=== PATIENT | male | born 1950 | race Caucasian/White ===

== ENCOUNTER 2016-10-29 20:18 | Observation (INO) | payer OTHER ==
[~2016-10-29] VITALS: Ht 177.8 cm; Wt 103.4 kg
[~2016-10-29 20:18] MED LIST: ALLOPURINOL100 MG PO; AMLODIPINE10 MG PO; ARANESP0.06 MG/0. SC; AUGMENTIN 500M500 MG PO; CEFTIN 250 #201 PAC PO; COREG 25 MG TAB25 MG PO; CRESTOR 10MG10 MG PO; CRESTOR5 MG PO; ECOTRIN81 MG PO; FISH OIL CONCEN1 SGL PO; FLU VACCINE 0.0.5 ML IM; FUROSEMIDE20 MG PO; GLIMEPIRIDE4 MG PO; GLIPIZIDE10 MG PO; ILEVRO 1.7 ML1.7 ML OP; LASIX20 MG PO; LASIX40 MG PO; LASIX80 MG PO; LOSARTAN POTAS100 MG PO; LOTEMAX 10 ML10 ML OPH; LOVAZA1 GM PO; PENTOXIFYLLINE400 MG PO; PERCOCET 325 MG1 TA2 PO; PRESERVISION1 SGL PO; RENVELA800 MG PO; SENSIPAR30 MG PO; SENSIPAR90 MG PO; SODIUM BICARBO650 MG PO; STARLIX60 MG PO; TRAVATAN Z50 GTT/1 B OPH; VIGAMOX 3 ML3 ML OP; VITAMIN D50000 IU PO
--- NOTE | 2016-10-29 20:35 | NUR ---
RECEIVED 65 YO MALE WITH HX OF PERITONEAL DIALYSIS C/O MID STERNAL AREA CHEST PAIN WITH COUGHING, DEEP BREATHING, STARTED EARLIER, GETTING MORE INTENSE. NO C/O DIAPHORESIS, NAUSEA OR WORSENING SOB. PT HAS CHRONIC SOB ON EXERTION.
--- NOTE | 2016-10-29 20:38 | NUR ---
RECIEVED TO ROOM 7 VIA WHEELCHAIR
--- NOTE | 2016-10-29 20:40 | NUR ---
PLACED ON MONITOR. PT ASKING TO SIT ON EDGE OF BED DUE TO BUTTOCKS DISCOMFORT. PT THINKS HE MAY HAVE BOIL DEVELOPING
[2016-10-29] MEDS ORDERED: CALCITRIOL0.5 MC1 PO ×2 (20:47→20:48)
[2016-10-29] MEDS ORDERED: CRESTOR5 M1 PO (20:49)
[2016-10-29] MEDS ORDERED: CARVEDILOL12.5 M1 PO (20:49)
[2016-10-29] MEDS ORDERED: RENVELA800 M1 PO (20:49)
[2016-10-29] MEDS ORDERED: STARLIX60 M1 PO (20:50)
[2016-10-29] MEDS ORDERED: FUROSEMIDE80 M1 PO (20:51)
[2016-10-29] MEDS ORDERED: ALLOPURINOL100 M1 PO (20:51)
[2016-10-29] MEDS ORDERED: METOLAZONE5 M1 PO (20:51)
[2016-10-29] MEDS ORDERED: ASPIRIN EC81 M1 PO (20:52)
[2016-10-29] MEDS ORDERED: SENSIPAR90 M1 PO (20:52)
[2016-10-29] MEDS ORDERED: PRESERVISION A1 EAC1 PO (20:53)
[2016-10-29] MEDS ORDERED: STOOL SOFTENER100 M2 PO (20:54)
[2016-10-29] MEDS ORDERED: OMEGA-31000 M1 PO (20:54)
[2016-10-29] MEDS ORDERED: MIRALAX17 G1 PO (20:55)
[2016-10-29] MEDS ORDERED: VITAMIN D250000 UNIT PO (20:56)
[2016-10-29] MEDS ORDERED: LOSARTAN POTASS50 M1 (20:58)
--- NOTE | 2016-10-29 21:10 | NUR ---
SEEN BY DR BENTLEY.
--- NOTE | 2016-10-29 21:20 | ED CARDIAC/CP/PALPITATIONS ---
History of Present Illness General Chief Complaint: Chest Pain Stated Complaint: CHEST PAIN ALL DAY PER PT Source: patient, old records, Exam Limitations: no limitations Vital Signs & Intake/Output Vital Signs & Intake/Output Vital Signs Date Time Temp Pulse Resp B/P Pulse O2 O2 Flow FiO2 Ox Delivery Rate 10/30 0016 102/58 10/29 2348 78/52 10/29 2335 80 88/44 10/29 2317 73 18 80/40 10/29 2237 98.0 85 18 96/77 95 Room Air 10/29 2139 Room Air 10/297 96.8 99 18 127/58 96 Room Air ED Intake and Output 10/30 0000 10/29 1200 Intake Total Output Total Balance Patient 228 lb Weight Allergies Coded Allergies: tetrahydrozoline (BELIEVES HE HAD A COUGH, UNSURE 10/10/15) Reconcile Medications Allopurinol 100 MG TABLET 1 TAB PO DAILY GOUT (Reported) Aspirin (Ecotrin*) 81 MG TABLET.DR 1 TAB PO DAILY HEART/BLOOD (Reported) Calcitriol 0.5 MCG CAPSULE 1 CAP PO EOD RENAL (Reported) Calcitriol 0.5 MCG CAPSULE 2 CAP PO EOD RENAL (Reported) Carvedilol 12.5 MG TABLET 1 TAB PO BID HEART (Reported) Cinacalcet HCl (Sensipar) 90 MG TABLET 1 TAB PO AD RENAL (Reported) Docusate Sodium (Stool Softener) 100 MG TABLET 1 TAB PO BID STOOL SOFTENER ( Reported) Ergocalciferol (Vitamin D2) (Vitamin D2) 50,000 UNIT CAPSULE 1 CAP PO Q30D SUPPLEMENT (Reported) Furosemide 80 MG TABLET 1 TAB PO BID DIURETIC (Reported) Losartan Potassium (Unknown Strength) TABLET (Unknown Dose) UNKNOWN (Reported ) Metolazone 5 MG TABLET 1 TAB PO EOD DIURETIC (Reported) Nateglinide (Starlix) 60 MG TABLET 1 TAB PO BID DM (Reported) [place]-3 Fatty Acids ([place]-3) 1,000 MG CAPSULE 1 CAP PO EOD SUPPLEMENT ( Reported) Polyethylene Glycol 3350 (Miralax) 17 GRAM POWD.PACK 1 PAC PO PRN GI ( Reported) dissolve in water Rosuvastatin Calcium (Crestor) 5 MG TABLET 1 TAB PO DAILY CHOLESTEROL ( Reported) Sevelamer Carbonate (Renvela) 800 MG TABLET 3 TAB PO TID RENAL (Reported) Vit C/E/Zn/Coppr/Lutein/Zeaxan (Preservision Areds 2 Softgel) 250-200-40 CAPSULE 1 CAP PO BID SUPPLEMENT (Reported) Triage Note: RECEIVED 65 YO MALE WITH HX OF PERITONEAL DIALYSIS C/O MID STERNAL AREA CHEST PAIN WITH COUGHING, DEEP BREATHING, STARTED EARLIER, GETTING MORE INTENSE. NO C/O DIAPHORESIS, NAUSEA OR WORSENING SOB. PT HAS CHRONIC SOB ON EXERTION. Triage Nurses Notes Reviewed? yes HPI: Patient presents for evaluation of chest pain that began earlier today. It began sometime in the late morning. Patient is unable to say if it began gradually or suddenly. It did get worse however tonight. It is described as a mild constant substernal chest pain that becomes severe with coughing and deep inspiration. He was seen at the [facility] today, a routine renal transplant list visit and was told that based on a recent echocardiogram and stress test that he would be taken off the list. He denies any prior episodes of chest pain. He denies dyspnea palpitations sweating jaw pain arm pain or leg swelling. He hasn't tried any medications for the pain to this point. He denies past medical history of TN or angina. He does have a history of congestive heart failure and cardiomyopathy. Past History Travel History Traveled to [place] past 21 day No Medical History Any Pertinent Medical History? see below for history Neurological: NONE EENT: NONE Cardiovascular: NONE (EF 35-40%), CAD, CHF, hypertension, hyperlipidemia Respiratory: NONE Gastrointestinal: NONE Hepatic: NONE Renal: chronic kidney disease, stage IV CKD, awaiting transplant diabetic nephropathy Musculoskeletal: gout Psychiatric: NONE Endocrine: diabetes Blood Disorders: NONE Cancer(s): prostate cancer CLERK STENOGRAPHER/Reproductive: NONE Other Medical Hx: Apparently has been on list for kidney transplant for 6 years History of MRSA: No History of VRE: No History of CDIFF: No Pneumonia Vaccine: 05/10/14 Influenza Vaccine: 06/17/15 Surgical History Surgical History: appendectomy, prostatectomy, BACK SURGERY - 3 YEARS AGO T + A tonsillectomy as a child Psychosocial History Who do you live with Family Services at Home None What is your primary language Yoruba Tobacco Use: Never used Family History Family History, If Any: MOTHER FH: CAD (coronary artery disease) FH: cancer FH: Parkinson's disease FHx: diabetes mellitus FATHER FH: hyperlipidemia Hx Contributory? No Review of Systems Review of Systems Constitutional: Reports: no symptoms. EENTM: Reports: no symptoms. Respiratory: Reports: no symptoms. Cardiovascular: Reports: see HPI. GI: Reports: no symptoms. Genitourinary: Reports: no symptoms. Musculoskeletal: Reports: no symptoms. Skin: Reports: no symptoms. Neurological/Psychological: Reports: no symptoms. Hematologic/Endocrine: Reports: no symptoms. Immunologic/Allergic: Reports: no symptoms. All Other Systems: Reviewed and Negative Physical Exam Physical Exam Cardiovascular: SEE BELOW Comments: Gen.: Well-nourished, well-developed, no acute respiratory distress. Head: Normocephalic, atraumatic. Eyes: Normal inspection bilaterally Ears: Normal inspection bilaterally Nose: Normal inspection Throat/mouth : Moist mucosa Neck: Supple, full range of motion, no goiter Heart: Regular rate and rhythm, soft systolic murmur Lungs: Clear to auscultation bilaterally with normal air entry Chest: Nontender Back: Normal range of motion, mild kyphosis, area of ischemia at the superior Aspect of the buttock crease Abdomen: Soft, nontender, nondistended, normal bowel sounds Extremities: Normal range of motion grossly, equal radial pulses, no cyanosis clubbing or edema, calves nontender Neurologic: Cranial nerves grossly intact, speech is clear Skin: warm and dry Psychiatric: Calm, cooperative, no apparent delusions or hallucinations Core Measures ACS in differential dx? Yes Severe Sepsis Present: No Septic Shock Present: No Progress Differential Diagnosis: AMI, CHF/pulm edema, unstable angina Plan of Care: Orders Procedure Date/time Status Place in observation 10/30 40 Active Telemetry/Lead Infrastructure Architect 10/29 2118 Active TROPONIN LEVEL 10/29 2118 Complete MAGNESIUM 10/29 2118 Complete D-DIMER 10/29 2118 Complete CBC WITHOUT DIFFERENTIAL 10/29 2118 Complete B-TYPE NATRIURETIC PEP (BNP) 10/29 2118 Complete BASIC METABOLIC PANEL 10/29 2118 Complete EKG 10/29 2022 Active Laboratory Tests 10/29/162129: Anion Gap 16, Estimated GFR 4 L, BUN/Creatinine Ratio 6.5 L, Glucose 97, Calcium 9.8, Magnesium 2.3, Troponin I < 0.01, Jxz-P-Ojmccflvcoa Pept 4580 H, D -Dimer < 200, CBC w Diff NO MAN DIFF REQ, RBC 5.13, MCV 69.5 L, MCH 21.4 L, RDW 19.9 H, MPV 8.1, Gran % 74.6, Lymphocytes % 9.6 L, Monocytes % 12.3 H, Eosinophils % 3.0, Basophils % 0.5, Absolute Granulocytes 8.7 H, Absolute Lymphocytes 1.1 L, Absolute Monocytes 1.4 H, Absolute Eosinophils 0.3, Absolute Basophils 0.1, PUBS MCHC 30.8 L Diagnostic Imaging: Discussed w/RAD: Radiology Read. CXR Impression: PATIENT: DENIA ROSARIO PRESENT AGE: 65 PATIENT ACCOUNT NO: [id number] : 51 LOCATION: [facility] ORDERING PHYSICIAN: CARLOS BENTLEY MD SERVICE DATE: 10/29/16 EXAM TYPE: RAD - XRY-PORTABLE CHEST XRAY EXAMINATION: XR PORTABLE CHEST CLINICAL INFORMATION: CHF effusion COMPARISON: CT chest 10/22/2016 and chest x-ray 10/20/2015 TECHNIQUE: Portable AP view of the chest was obtained. FINDINGS: Probable persistent but decreased left basilar pleural-based opacity is seen on prior imaging examinations. The lungs are otherwise clear. The cardiac silhouette and pulmonary vascularity are normal there is calcification of the dorsal aorta. IMPRESSION: Persistent albeit decreased pleural-based opacity at the left base DICTATED BY: FLORENCIO HERNÁNDEZ MD DATE/TIME DICTATED:10/29/162204 OUTSIDE MACHINIST SUPERVISOR:CAMERON DATE/TIME TRANSCRIBED:10/29/162204 CONFIDENTIAL, DO NOT COPY WITHOUT APPROPRIATE AUTHORIZATION. <Electronically signed in Other Vendor System> SIGNED BY: FLORENCIO HERNÁNDEZ MD 10/29/162212 Initial ED EKG: SINUS TACHYCARDIA WITH A VENTRICULAR RATE OF 101. iNTRAVENTRICULAR CONDUCTION DELAY WITH LEFTWARD AXIS. Prior EKG: unchanged Comments: 10/29/2016 10:44:34 PM I have updated Denia on his test results. He appears comfortable and has no complaint at this time. I've discussed this case with Dr. Marcano who feels that he is stable for outpatient follow-up. He feels that given the duration of the patient's pain today a repeat EKG and troponin would be of no benefit. 10/29/2016 10:53:30 PM when updated Denia on my discussion with Dr. Marcano, he commented that he was still having the substernal chest pain although it is better. He is agreeable to a sl nitroglycerin challenge followed by a GI cocktail. 10/29/2016 11:57:10 PM patient's nurse states that his blood pressure is still running low. Although he does perform peritoneal dialysis, I have ordered a 500 mL fluid bolus to stabilize his blood pressure. I will monitor for any signs of fluid overload. 10/30/2016 12:12:08 AM patient received only transient relief of his chest pain with a GI cocktail (we held on the subungual nitroglycerin given the patient's low blood pressure). His they'll achy substernal chest pain seems to have now returned. He states it is better than earlier today. Will contact Dr. Marcano. 10/30/2016 12:42:18 AM patient's blood pressure has now normalized with a fluid bolus. His pain persists. I've discussed this case with Dr. Gillespie covering for Dr. Marcano. Patient to be placed in observation. Departure Departure Disposition: STILL A PATIENT Condition: Stable Clinical Impression Primary Impression: Chest pain Qualifiers: Chest pain type: unspecified Qualified Code: R07.9 - Chest pain, unspecified Secondary Impressions: Renal failure Referrals: NOÉ GILLESPIE MD (PCP/Family) Departure Forms: Customer Survey General Discharge Information Observation Note Spoke With: ROMMEL GILLESPIE MD, V. Physician Advisor Notified: GAGAN ECKERT,CORNELIO Hendrickson Place Patient In: Non-ED OBS Care Area Rationale for Observation: My rational for observation is as follows patient has ongoing chest pain of unclear etiology. He also experience a transient hypotension in the emergency Department requiring a fluid bolus. This raises a concern for coronary artery disease and a cardiac chest pain. Feel the patient requires serial troponins and serial EKGs and consideration of cardiac catheterization. Should his blood pressure drop again he would be at risk of worsening chest pain, syncope and dyspnea. I feel he is therefore poor candidate for outpatient treatment at this time. Critical Care Note Critical Care Note Critical Care Time: 30-74 min
--- NOTE | 2016-10-29 21:34 | NUR ---
IV PLACED LABS DRAWN.
--- NOTE | 2016-10-29 21:40 | NUR ---
PT GIVEN TYLENOL IV FOR PAIN. CONTINUES TO HAVE BUTTOCKS DISCOMFORT. SITTING ON EDGE OF BED
[2016-10-29 21:45] LABS: ABSOLUTE BASOPHIL COUNT 0.1 /CUMM (0.0-0.2); ABSOLUTE EOSINOPHIL COUNT 0.3 /CUMM (0.0-0.7); ABSOLUTE GRANULOCYTE CT 8.7 /CUMM (1.4-6.5); ABSOLUTE LYMPH COUNT 1.1 /CUMM (1.2-3.4); ABSOLUTE MONOCYTE COUNT 1.4 /CUMM (0.10-0.60); BASOPHIL % 0.5 % (0.0-2.0); GRANULOCYTE % 74.6 % (42.2-75.2); HEMATOCRIT 35.7 % (42-52); MEAN CORPUSCULAR HGB 21.4 PG (27.0-31.0); MEAN CORPUSCULAR HGB CONC 30.8 G/DL (33.0-37.0); MEAN CORPUSCULAR VOLUME 69.5 FL (80.0-94.0); MEAN PLATELET VOLUME 8.1 FL (7.4-10.4); PLATELET COUNT 176 /CUMM (130-400); RBC DISTRIBUTION WIDTH 19.9 % (11.5-14.5); RED BLOOD CELL CT 5.13 /CUMM (4.70-6.10); WHITE BLOOD CELL COUNT 11.7 /CUMM (4.8-10.8)
--- NOTE | 2016-10-29 22:13 | RADIOLOGY REPORT ---
EXAMINATION: XR PORTABLE CHEST CLINICAL INFORMATION: CHF effusion COMPARISON: CT chest 10/22/2016 and chest x-ray 10/20/2015 TECHNIQUE: Portable AP view of the chest was obtained. FINDINGS: Probable persistent but decreased left basilar pleural-based opacity is seen on prior imaging examinations. The lungs are otherwise clear. The cardiac silhouette and pulmonary vascularity are normal there is calcification of the dorsal aorta. IMPRESSION: Persistent albeit decreased pleural-based opacity at the left base
--- NOTE | 2016-10-29 22:35 | NUR ---
PT CONTINUES TO HAVE SOME CHEST DISCOMFORT. PT UNCOMFORTABLE IN STRETCHER. RECLINER CHAIR PUT IN ROOM AND PT NOW IN RECLINER CHAIR/
--- NOTE | 2016-10-29 22:45 | NUR ---
DR BENTLEY IN TO SEE PT AND HE IS AWARE OF CONTINUED CHEST DISCOMFORT.
--- NOTE | 2016-10-29 22:50 | NUR ---
DR BENTLEY NOTIFIED THAT PT HAS BLOOD PRESSURE OF 96/77. ORDER ON CHART TO GIVE NTG. MISAEL BENTLEY STATES TO RECHECK B/P AND GIVEN NTG IF BLOOD PRESSURE OVER 100 SYSTOLIC.
--- NOTE | 2016-10-29 23:15 | NUR ---
BLOOD PRESSURE RECHECKED WHILE IN CHAIR AND WAS LOW. MANUALL PRESSURES CHECKED IN BOTH ARMS AND PRESSURE 77/40. DR BENTLEY NOTIFIED. NTG NOT GIVEN. PT GIVEN GI COCKTAIL FOR CHEST DISCOMFORT. PT DENIES DIZZINESS. STATES HIS NORMAL PRESSURE IS IN THE 90S TO LOW 100S. ATTEMPTED TO GET PT BACK TO BED BUT PT WILL NOT STAY IN BED. INSISTS ON GETTING INTO RECLINER CHAIR.
--- NOTE | 2016-10-29 23:15 | NUR ---
ASSUMED CARE OF PT PER CASIMIRO HERNÁNDEZ. WILL CONTINUE TO MONITOR
--- NOTE | 2016-10-29 23:17 | NUR ---
BLOOD PRESSURE CHECKED AND IS 80/40, DR BENTLEY AWARE. NO FURTHER ORDERS AT PRESENT. PT REMAINS ALERT AND ORIENTED. SKIN WARM AND DRY.
--- NOTE | 2016-10-29 23:40 | NUR ---
REPORT GIVEN TO MOE KIRKPATRICK
--- NOTE | 2016-10-29 23:57 | NUR ---
DR BENTLEY INFORMED OF PTS BP OF 78/[address] BENTLEY ORDERED 500ML NS BOLUS INFUSING
--- NOTE | 2016-10-30 00:04 | NUR ---
DR BENTLEY AT BEDSIDE
--- NOTE | 2016-10-30 00:16 | NUR ---
PTS BP RECHECKED 102/58, DR BENTLEY INFORMED
--- NOTE | 2016-10-30 02:01 | NUR ---
VSS, PT SLEEPIGN IN CHAIR SITTING UP.
--- NOTE | 2016-10-30 02:53 | History & Physical ---
REINALDO CHRISTINA 10/30/16 0249: General Information and HPI MD Statement: I have seen and personally examined DENIA ROSARIO and documented this H&P. The patient is a 65 year old M who presented with a patient stated chief complaint of [Chest pain]. Source of Information: patient, old records Exam Limitations: no limitations History of Present Illness: This is a 65-year-old male with an extensive past medical history. The patient has a history of hypertension, dyslipidemia, restrictive lung disease, COPD not on home oxygen, MARY on CPAP, chronic kidney disease, diabetes, prostate cancer status post prostatectomy, and gout. Patient has ESRD on peritoneal dialysis. Patient presenting with chest pain that began today around a little morning hours. Pain is located in the center part just above the epigastric area radiating to the liver area it is 6 out of 10. The patient reports that it's dull aching pain that is not radiating to any place. She does not know any relieving factors but reports that the pain is exacerbated with swallowing or deep breathing. Patient denies any history of acid reflux or pain been associated with sense of fullness after eating food. He denies any fevers or chills, he has no cough or shortness of breath. He has no excessive sweating lightheadedness or dizziness. Patient reports that he has been sleeping on a recliner for a long time because of a bad back which is making he difficult for him to lie flat. He denies any swelling of lower limbs OR waking up at night gasping for air. He has been taking his medication as instructed and he reports to continue to use the same technique in doing his peritoneal dialysis. Allergies/Medications Allergies: Coded Allergies: tetrahydrozoline (BELIEVES HE HAD A COUGH, UNSURE 10/10/15) Home Med list Allopurinol 100 MG TABLET 1 TAB PO DAILY GOUT (Reported) Aspirin (Ecotrin*) 81 MG TABLET. 1 TAB PO DAILY HEART/BLOOD (Reported) Calcitriol 0.5 MCG CAPSULE 1 CAP PO EOD RENAL (Reported) Calcitriol 0.5 MCG CAPSULE 2 CAP PO EOD RENAL (Reported) Carvedilol 12.5 MG TABLET 1 TAB PO BID HEART (Reported) Cinacalcet HCl (Sensipar) 90 MG TABLET 1 TAB PO AD RENAL (Reported) Docusate Sodium (Stool Softener) 100 MG TABLET 1 TAB PO BID STOOL SOFTENER ( Reported) Ergocalciferol (Vitamin D2) (Vitamin D2) 50,000 UNIT CAPSULE 1 CAP PO Q30D SUPPLEMENT (Reported) Furosemide 80 MG TABLET 1 TAB PO BID DIURETIC (Reported) Metolazone 5 MG TABLET 1 TAB PO EOD DIURETIC (Reported) Nateglinide (Starlix) 60 MG TABLET 1 TAB PO BID DM (Reported) [place]-3 Fatty Acids ([place]-3) 1,000 MG CAPSULE 1 CAP PO EOD SUPPLEMENT ( Reported) Polyethylene Glycol 3350 (Miralax) 17 GRAM POWD.PACK 1 PAC PO PRN GI ( Reported) dissolve in water Rosuvastatin Calcium (Crestor) 5 MG TABLET 1 TAB PO DAILY CHOLESTEROL ( Reported) Sevelamer Carbonate (Renvela) 800 MG TABLET 3 TAB PO TID RENAL (Reported) Vit C/E/Zn/Coppr/Lutein/Zeaxan (Preservision Areds 2 Softgel) 250-200-40 CAPSULE 1 CAP PO BID SUPPLEMENT (Reported) Past History Travel History Traveled to [place] past 21 day No Medical History Neurological: NONE EENT: NONE Cardiovascular: NONE (EF 35-40%), CAD, CHF, hypertension, hyperlipidemia Respiratory: NONE Gastrointestinal: NONE Hepatic: NONE Renal: chronic kidney disease, stage IV CKD, awaiting transplant diabetic nephropathy Musculoskeletal: gout Psychiatric: NONE Endocrine: diabetes Blood Disorders: NONE Cancer(s): prostate cancer DIRECTOR REPORT/Reproductive: NONE Other Medical Hx: Apparently has been on list for kidney transplant for 6 years History of MRSA: No History of VRE: No History of CDIFF: No Pneumonia Vaccine: 05/10/14 Influenza Vaccine: 06/17/15 Surgical History Surgical History: appendectomy, prostatectomy, BACK SURGERY - 3 YEARS AGO T + A tonsillectomy as a child Past Family/Social History Family History Relations & Conditions if any MOTHER FH: CAD (coronary artery disease) FH: cancer FH: Parkinson's disease FHx: diabetes mellitus FATHER FH: hyperlipidemia Psychosocial History Services at Home: None Functional Ability ADLs Independent: dressing, eating, toileting, bathing. Ambulation: cane IADLs Independent: shopping, finances, telephone, medication admin. Review of Systems Review of Systems Constitutional: Denies: chills, fever. Cardiovascular: Reports: see HPI, chest pain. Denies: palpitations, syncope. Respiratory: Denies: cough, short of breath. GI: Denies: no symptoms. Genitourinary: Denies: no symptoms. Musculoskeletal: Reports: back pain. Skin: Denies: no symptoms. All Other Systems: Reviewed and Negative Exam & Diagnostic Data Last 24 Hrs of Vital Signs/I&O Vital Signs Date Time Temp Pulse Resp B/P Pulse O2 O2 Flow FiO2 Ox Delivery Rate 10/30 0214 98/50 10/30 0142 91 117/56 10/30 0113 91 102/53 10/30 0048 125/67 10/30 0016 102/58 10/29 2348 78/52 10/29 2335 80 88/44 10/29 2317 73 18 80/40 10/29 2237 98.0 85 18 96/77 95 Room Air 10/29 2139 Room Air 10/29 2047 96.8 99 18 127/58 96 Room Air Intake & Output 10/30 0800 10/30 0000 10/29 1600 Intake Total Output Total Balance Patient 228 lb Weight Physical Exam General Appearance Alert, Oriented X3, Cooperative, No Acute Distress Skin No Rashes HEENT Atraumatic, Mucous Membr. moist/pink Neck Supple Cardiovascular Regular Rate, Normal S1, Normal S2, No Murmurs Lungs Clear to Auscultation, Normal Air Movement Abdomen Normal Bowel Sounds, Soft, No Tenderness Neurological Normal Speech, Normal Tone Extremities No Clubbing, No Cyanosis, No Edema Last 24 Hrs of Labs/Elijah: Laboratory Tests 10/29/160: Anion Gap 16, Estimated GFR 4 L, BUN/Creatinine Ratio 6.5 L, Glucose 97, Calcium 9.8, Magnesium 2.3, Troponin I < 0.01, [id number]-Mvssxzykqhz Pept 4580 H, D -Dimer < 200, CBC w Diff NO MAN DIFF REQ, RBC 5.13, MCV 69.5 L, MCH 21.4 L, RDW 19.9 H, MPV 8.1, Gran % 74.6, Lymphocytes % 9.6 L, Monocytes % 12.3 H, Eosinophils % 3.0, Basophils % 0.5, Absolute Granulocytes 8.7 H, Absolute Lymphocytes 1.1 L, Absolute Monocytes 1.4 H, Absolute Eosinophils 0.3, Absolute Basophils 0.1, PUBS MCHC 30.8 L Diagnostic Data CXR Results Operations Expert Ruben decreased pleural based opacity at the left base Assessment/Plan Assessment: 65 years old man with extensive cardiac history hypertension hyperlipidemia COPD , diabetes mellitus, obstructive sleep apnea on CPAP who is presenting with one- day history of chest pain on the central Nonradiating associated with deep breathing and swallowing. There is no postural relation to the pain. Problem list Chest pain rule out ACS End-stage renal disease on peritoneal dialysis Hypertension Hyperlipidemia COPD Obstructive sleep apnea Placed the patient on observation telemetry Continue with car examiner Serial troponin and EKG 3 samples Restart peritoneal dialysis per home schedule Continue blood pressure medication carvedilol 12.5 twice a day and to diuress with furosemide 80 twice a day and metolazone 5 every other day Continue rosuvastatin 5 mg daily For gout continue allopurinol 100 mg daily Patient is full code and will be put on pain pathway and heparin for DVT prophylaxis As Ranked By This Provider Problem List: 1. Chest pain Qualifiers Chest pain type: unspecified Qualified Code: R07.9 - Chest pain, unspecified 2. Hyperlipidemia 3. Hypertension 4. Full code status 5. End-stage renal disease on peritoneal dialysis Core Measures/Miscellaneous Acute Coronary Syndrome ACS Diagnosis: No Cerebrovascular Accident CVA/TIA Diagnosis: No Congestive Heart Failure CHF Diagnosis: No Venous Thromboembolism VTE Risk Factors: Acute medical illness, Age > 40 [facility] prophylaxis d/t: No contraindications No VTE Pharm Prophylaxis d/t: No contraindications VTE Diagnosis: No VTE Type: NONE VTE Confirmed by (Test): NONE Severe Sepsis Severe Sepsis Present: No Septic Shock Septic Shock Present: No Miscellaneous Documentation Attending Case Discussed With: Jace MARTEL MD Primary Care Physician: NOÉ PALMA MD Patient sees these Specialists Emily Martel MD Level of Patient Care: Telemetry Resident Review Statement Resident Statement: examined this patient Other Findings: Refer to my findings above ROMMEL PALMA MD 10/30/16 1014: Attending Review Statement Attending Statement Attending Statement: examined this patient, discuss w/resident/PA/AD CLERK, discussed with family, discussed with nursing Attending Assessment/Plan: The patient is a 65-year-old male with hypertension, end-stage renal disease on peritoneal dialysis and dyslipidemia but no active coronary artery disease. He presented with midsternal chest pain that was worse with breathing and coughing and pushing with his arms. The pain has abated significantly although it is still slightly there. His EKGs have not shown any changes. He has 3 negative troponins. The pain is clearly noncardiac by description. The patient can be discharged to home at this time. He will call if the pain recurs or becomes worse but I told him he could take just analgesics for now.
--- NOTE | 2016-10-30 04:17 | NUR ---
REPEAT TROPONIN DRAWN AND SENT TO LAB
--- NOTE | 2016-10-30 06:40 | NUR ---
PT REFUSED HEPARIN. RESIDENT PAGED AND INFORMED.
--- NOTE | 2016-10-30 07:37 | NUR ---
BREAKFAST GIVEN. PT TO HAVE 0900 LABS
--- NOTE | 2016-10-30 08:42 | NUR ---
REPEAT TROP DRAWN AND SENT.\ PT DENIES CO STATES PAIN IS BETTER PT REPORTS HE WOULD LIKE TO LEAVE. WILL WAIT ON TROP RESULTS AND PAGE HOUSESTAFF.
--- NOTE | 2016-10-30 09:25 | NUR ---
MOD PAGED TO FIND HOUSESTAFF BEEPER COVERING PT BEEPER 172. DR VALLES RETURNED CALL MADE AWARE OF PTS DESIRE TO LEAVE, 3RD NEGATIVE TROP AND CURRENT BP AND WHETHER COREG SHOULD BE GIVEN, PER RESIDENT, AWAITING DR ZIEGLER WHO IS TO CEAR PT. ASKED FOR TIME FRAME NONE GIVEN NO DEFINATIVE ANSWER ON COREG.
--- NOTE | 2016-10-30 09:28 | NUR ---
LUNGS DIMINSHED AT BASELINE NO RESP DISTRESS, NO CO CP NO PEDAL EDEMA PT HAS SPEND ALL ADMISSION IN RECLINER FOR COMFORT.
--- NOTE | 2016-10-30 09:46 | NUR ---
PER FAMILY AND PT PTS BP HAS BEEN LOW HUNDREDS TO 90'S X 2 MONTHS EVEN AT DIALYSIS. PER PT STILL TAKES COREG 12.5 MG DOWN FROM 25 MG 2 MONTHS AGO.
--- NOTE | 2016-10-30 10:10 | NUR ---
DR. PALMA AT BEDSIDE.
--- NOTE | 2016-10-30 10:25 | NUR ---
PER DR PALMA PT IS CLEARED TO LEAVE, AM MEDS GIVEN IV HEPLOCK DISCONTINUED.
[2016-10-30 10:26] VITALS: BP 113/54
--- NOTE | 2016-10-30 10:42 | NUR ---
SPOKE WITH RESIDENT WHO REPORTS IT TAKES A LONG TIME TO DISCHARGE SOMEONE. DR CAZARES AWARE THAT PT MAY LEAVE PRIOR TO COMPLETION.
--- NOTE | 2016-10-30 10:42 | Patient Discharge Instructions ---
Discharge Instructions General Discharge Information You were seen/treated for: Chest pain Watch for these problems: Chest pain Shortness of breath Special Instructions: #1 please follow up with primary care doctor within 1-2 weeks of discharge. #2 please follow up with your water safety teacher within 1-2 weeks of discharge. 3. Please seek medical attentiion, if the symptoms recur. Acute Coronary Syndrome Inclusion Criteria At DC or during hospital stay patient has or had the following: ACS DIAGNOSIS No Discharge Core Measures Meds if any: Prescribed or Continued at Discharge Meds if any: NOT Prescribed or Continued at Discharge Congestive Heart Failure Inclusion Criteria At DC or during hospital stay patient has or had the following: CHF DIAGNOSIS No Discharge Core Measures Meds if any: Prescribed or Continued at Discharge Meds if any: NOT Prescribed or Continued at Discharge Cerebrovascular accident Inclusion Criteria At DC or during hospital stay patient has or had the following: CVA/TIA Diagnosis No Discharge Core Measures Meds if any: Prescribed or Continued at Discharge Meds if any: NOT Prescribed or Continued at Discharge Venous thromboembolism Inclusion Criteria VTE Diagnosis No VTE Type NONE VTE Confirmed by (Test) NONE Discharge Core Measures - Per Current guidelines, there needs to be overlap - treatment for the first 5 days of Warfarin therapy. - If discharged on Warfarin prior to 5 days of - overlap therapy, the patient will need to be - assessed for post discharge needs including - *Post discharge parental anticoagulation - *Warfarin and/or parental anticoagulation education - *Follow up date to check INR post discharge At least 5 days overlap therapy as Inpatient No Meds if any: Prescribed or Continued at Discharge Note: Overlap Therapy is Warfarin and Anticoagulant Meds if any: NOT Prescribed or Continued at Discharge
--- NOTE | 2016-10-30 10:54 | NUR ---
PT IS HOLD IN ER AT THIS TIME
--- NOTE | 2016-10-30 11:19 | NUR ---
PT DISCHARGED AT 1115 AM NO DISTRESS.
== END 2016-10-30 11:15 ==
LOC: ERH 20:18 → ERHI 10-30 00:41
PROVIDERS: Emergency Medicine; ADMIT Specialist
DX: R07.9 Chest pain, unspecified (principal); I12.0 Hypertensive chronic kidney disease with stage 5 chronic kidney disease or end stage renal disease; E11.22 Type 2 diabetes mellitus with diabetic chronic kidney disease; N18.6 End stage renal disease; Z99.2 Dependence on renal dialysis; Z79.4 Long term (current) use of insulin; E78.5 Hyperlipidemia, unspecified; J44.9 Chronic obstructive pulmonary disease, unspecified; G47.33 Obstructive sleep apnea (adult) (pediatric); Z79.82 Long term (current) use of aspirin
CPT/HCPCS: 6090; 93005; 93010; 96374; 99291; G0378; J0131; J1644; J3490

== ENCOUNTER 2017-09-09 16:23 | Inpatient (IN) | payer OTHER ==
[~2017-09-09] VITALS: Ht 177.8 cm; Wt 90.8 kg
[~2017-09-09 16:23] MED LIST changes: +ALLOPURINOL100 M1 PO; +ASPIRIN EC81 M1 PO; +CALCITRIOL0.5 MC1 PO; +CARVEDILOL12.5 M1 PO; +CRESTOR5 M1 PO; +FUROSEMIDE80 M1 PO; +LOSARTAN POTASS50 M1; +METOLAZONE5 M1 PO; +MIRALAX17 G1 PO; +OMEGA-31000 M1 PO; +PRESERVISION A1 EAC1 PO; +RENVELA800 M1 PO; +SENSIPAR90 M1 PO; +STARLIX60 M1 PO; +STOOL SOFTENER100 M2 PO; +VITAMIN D250000 UNIT PO
[2017-09-09 17:17] LABS: ABSOLUTE BASOPHIL COUNT 0 /CUMM (0.0-0.2); ABSOLUTE EOSINOPHIL COUNT 0.2 /CUMM (0.0-0.7); ABSOLUTE GRANULOCYTE CT 9.8 /CUMM (1.4-6.5); ABSOLUTE LYMPH COUNT 0.5 /CUMM (1.2-3.4); ABSOLUTE MONOCYTE COUNT 0.8 /CUMM (0.10-0.60); BASOPHIL % 0.4 % (0.0-2.0); EOSINOPHIL % 1.9 % (0-5); MEAN CORPUSCULAR HGB 19.4 PG (27.0-31.0); MEAN CORPUSCULAR VOLUME 64.5 FL (80.0-94.0); MEAN PLATELET VOLUME 7.7 FL (7.4-10.4); PLATELET COUNT 336 /CUMM (130-400); RBC DISTRIBUTION WIDTH 17.6 % (11.5-14.5); WHITE BLOOD CELL COUNT 11.3 /CUMM (4.8-10.8)
[2017-09-09 17:19] LABS: GRANULOCYTE % 86.4 % (42.2-75.2)
--- NOTE | 2017-09-09 17:43 | ED DYSPNEA/ASTHMA COMPLAINT ---
History of Present Illness General Chief Complaint: Dyspnea (COPD, CHF, Other) Stated Complaint: SIB DR. JONES FOR DIFF BREATHING Source: patient Exam Limitations: no limitations Vital Signs & Intake/Output Vital Signs & Intake/Output Vital Signs Date Time Temp Pulse Resp B/P B/P Pulse O2 O2 Flow FiO2 Mean Ox Delivery Rate 09/10 0033 97.9 92 18 138/70 96 Nasal Cannula 09/10 0024 96 Nasal 2.0L Cannula 09/09 2207 98.0 103 18 156/76 100 Nasal 2.0L Cannula 09/09 1932 98.4 102 18 149/67 94 Room Air 09/09 1727 94 Nasal 2.0L Cannula 09/09 1703 98.8 106 20 165/82 98 Room Air ED Intake and Output 09/10 0000 09/09 1200 Intake Total 0 Output Total 600 Balance -600 Intake, Oral 0 Output, Urine 600 Patient 212 lb Weight Weight Reported by Patient Measurement Method Allergies Coded Allergies: tetrahydrozoline (BELIEVES HE HAD A COUGH, UNSURE 10/10/15) Reconcile Medications Apixaban (Eliquis) 5 MG TABLET 1 TAB PO BID BLOOD THINNER (Reported) Aspirin (Ecotrin*) 81 MG TABLET. 1 TAB PO DAILY HEART/BLOOD (Reported) Belatacept (Nulojix) (Unknown Strength) VIAL (Unknown Dose) IV Q30D TRANSPLANT (Reported) Cinacalcet HCl (Sensipar) 60 MG TABLET 1 TAB PO DAILY RENAL (Reported) Docusate Sodium (Stool Softener) 100 MG TABLET 1 TAB PO DAILY STOOL SOFTENER (Reported) Furosemide (Lasix) 40 MG TABLET 1 TAB PO DAILY DIURETIC (Reported) Insulin Detemir (Levemir) 100 UNIT/ML VIAL 8 UNITS SC QPM DM (Reported) Magnesium Oxide (Magnesium) 400 MG CAPSULE 1 CAP PO DAILY SUPPLEMENT ( Reported) Metoprolol Tartrate 25 MG TABLET 0.5 TAB PO BID HEART/BP (Reported) Mycophenolate Mofetil (Cellcept) 250 MG CAPSULE 4 CAP PO BID TRANSPLANT ( Reported) [place]-3 Fatty Acids ([place]-3) (Unknown Strength) CAPSULE (Unknown Dose) PO DAILY SUPPLEMENT (Reported) Rosuvastatin Calcium (Crestor) 5 MG TABLET 1 TAB PO DAILY CHOLESTEROL ( Reported) Sulfamethoxazole/Trimethoprim (Bactrim 400-80 MG Tablet) 400 MG-80 MG TABLET 1 TAB PO Tuesday ABX (Reported) Vit C/E/Zn/Coppr/Lutein/Zeaxan (Preservision Areds 2 Softgel) 250-200-40 CAPSULE 1 CAP PO BID SUPPLEMENT (Reported) Triage Note: TRIAGE: PT IN [place] FOR EKG AND BLOODWORK PRIOR TO TRIAGE. C/C SOB X 1-2 WEEKS WHICH HAS BEEN INCREASINGLY WORSENING SINCE ONSET. DENIES PAIN, DENIES COUGHING. STATES SAW DR MARTEL FOR SAME 2 DAYS AGO. [facility] [place] [facility]. Triage Nurses Notes Reviewed? yes Onset: Gradual Duration: getting worse Timing: recent history Severity: moderate HPI: Patient is a 66-year-old male with a past medical history of hypertension, hyperlipidemia, restrictive lung disease obstructive sleep apnea diabetes prostate cancer status post prostatectomy gout and approximate 5 months ago patient received right-sided renal transplant at [facility] Patient discussed with me that he had significant complications of pneumonia and pulmonary embolism after the transplant in which he required a 4 month stay patient currently is on [facility] Patient has been recently discharged in the past month however in the past week patient has developed worsening shortness of breath and dyspnea on exertion, patient followed up with his grant administrator 2 days ago in which per discussion with Dr. Martel he had clear lungs and was going to order a echocardiogram Patient's shortness of breath still continues or worsens in which patient presents to emergency room. Patient denies any fever chills chest pain arm pain and jaw pain cough nausea vomiting Patient states he has chronic leg swelling with no new changes patient is able to urinate denies any dysuria hematuria Patient denies any ear pain sore throat (Clementine VIDAL,Ezra) Past History Travel History Traveled to [place] past 21 day No Medical History Any Pertinent Medical History? 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 ECONOMICS/Reproductive: NONE Other Medical Hx: Apparently has been on list for kidney transplant for 6 years History of MRSA: No History of VRE: No History of CDIFF: No Surgical History Surgical History: appendectomy, prostatectomy, BACK SURGERY - 3 YEARS AGO T + A tonsillectomy as a child, RIGHT KIDNEY TRANSPLANT Psychosocial History Who do you live with Family Services at Home None What is your primary language Portuguese Tobacco Use: Never used Family History Family History, If Any: MOTHER FH: CAD (coronary artery disease) FH: cancer FH: Parkinson's disease FHx: diabetes mellitus FATHER FH: hyperlipidemia Hx Contributory? No (Ezra Wallis) Review of Systems Review of Systems Constitutional: Reports: no symptoms. EENTM: Reports: no symptoms. Respiratory: Reports: see HPI, short of breath. Cardiovascular: Reports: see HPI, peripheral edema. GI: Reports: no symptoms. Genitourinary: Reports: no symptoms. Musculoskeletal: Reports: no symptoms. Skin: Reports: no symptoms. Neurological/Psychological: Reports: no symptoms. Hematologic/Endocrine: Reports: no symptoms. Immunologic/Allergic: Reports: no symptoms. All Other Systems: Reviewed and Negative (Ezra Wallis) Physical Exam Physical Exam General Appearance: no apparent distress, alert, comfortable Head: atraumatic Eyes: Bilateral: normal appearance, PERRL. Ears, Nose, Throat: normal pharynx, normal ENT inspection Neck: normal inspection, supple Respiratory: no respiratory distress, crackles Cardiovascular: tachycardia Peripheral Pulses: 2+ radial (R) Gastrointestinal: normal bowel sounds, soft Extremities: pedal edema Skin: intact, normal color Core Measures ACS in differential dx? Yes CVA/TIA Diagnosis No Sepsis Present: No Sepsis Focused Exam Completed? No (Ezra Wallis) Progress Differential Diagnosis: asthma, AMI, bronchitis, costochondritis, CHF, COPD, musculoskeletal pain, pericarditis, pulmonary embolism, pneumonia, pneumothorax, rib fracture Plan of Care: Orders Procedure Date/time Status Nothing by Mouth 09/10 B Active CBC WITHOUT DIFFERENTIAL 09/10 0500 Active BASIC ELECTROLYTES PLUS BUN&CR 09/10 0500 Active Vital Signs 09/10 0021 Active Teach/Educate 09/10 0021 Active Pain Treatment and Response 09/10 0021 Active Nutritional Intake, Monitor 09/10 0021 Active Isolation 09/10 0021 Active Intake & Output 09/10 0021 Active Patient Care Conference 09/10 0021 Active Activity/Ambulation 09/10 0021 Active TROPONIN LEVEL 09/10 0003 Complete EKG 09/10 0003 Active TRC EVALUATION (GEN) 09/10 UNK Active CONTIN. POSITIVE AIRWAY PRESS 09/10 UNK Active Saline Lock 09/09 2240 Active Misc Message 09/09 2240 Active ED Holding Orders 09/09 2240 Active Admit to inpatient 09/09 2240 Active Vital Signs 09/09 2240 Active FingerStick- Glucose 09/09 2240 Active Code Status 09/09 2240 Active Patient Data 09/09 223 Active Telemetry/Earrings Fabricator 09/09 2154 Active Add-on Test (ER Only) 09/09 1804 Active Intake & Output 09/09 1726 Active D-DIMER 09/09 1701 Complete RAPID VIRAL INFLUENZA A 09/09 1633 Complete TROPONIN LEVEL 09/09 1633 Complete COMPREHENSIVE METABOLIC PANEL 09/09 1633 Complete CBC WITHOUT DIFFERENTIAL 09/09 1633 Complete B-TYPE NATRIURETIC PEP (BNP) 09/09 1633 Complete EKG 09/09 1624 Active Nursing Misc 09/09 UNK Active ECHOCARDIOGRAM 09/09 UNK Active Current Medications Sig/Eron Start time Last Medication Dose Stop Time Status Admin Furosemide 60 MG ONCE ONE 09/09 1999 CAN (Lasix) 09/09 2000 Laboratory Tests 09/10/17 0115: Troponin I 0.04 09/09/17 1701: Anion Gap 13, Estimated GFR 36 L, BUN/Creatinine Ratio 25.3 H, Glucose 161 H, Calcium 10.5 H, Total Bilirubin 0.3, AST 14 L, ALT 24, Alkaline Phosphatase 101, Troponin I 0.02, Xup-Q-Pfrxsplzbeq Pept 39574 H, Total Protein 6.2 L, Albumin 3.7, Globulin 2.5, Albumin/Globulin Ratio 1.5, D-Dimer High Sensitivty 251 H, CBC w Diff NO MAN DIFF REQ, RBC 4.80, MCV 64.5 L, MCH 19.4 L, MCHC 30.0 L, RDW 17.6 H, MPV 7.7, Gran % 86.4 H, Lymphocytes % 4.4 L, Monocytes % 6.9, Eosinophils % 1.9, Basophils % 0.4, Absolute Granulocytes 9.8 H, Absolute Lymphocytes 0.5 L, Absolute Monocytes 0.8 H, Absolute Eosinophils 0.2, Absolute Basophils 0 Microbiology 09/09 1734 NASOPHARYN: Influenza Virus A & B Rapid Smear - COMP On initial examination patient is resting comfortably at bedside patient was given 2 L of nasal cannula oxygen supplementation for symptomatic relief Patient denies any infectious symptoms and only complains of dyspnea on exertion and shortness of breath and chronic stable leg edema Due to history of present illness exam findings and chest x-ray and blood work the patient has suspicion of CHF exacerbation Patient has age adjusted negative d-dimer no concerned of pulmonary embolism Discussed patient with Dr. Medina who is aware of admission and will consult I also discussed patient with Dr. Martel patient's grant administrator who is aware of admission I also discussed patient with Dr. Malick TATUM [place] cake stripper who is aware of patient's clinical presentation of CHF and is also aware of patient as he evaluated patient while he was admitted at [place]. He advised that IV Lasix was safe for patient and advised between 40 - 80 IV for improvement of his fluid overload and did not have any concern per discussion of worsening kidney injury with this medication. The cake stripper phone number is [phone] cell phone and advised to be called if any questions by house staff I had a long extensive consultation with patient and patient's family member and which they requested to be admitted to [facility] and agreed with IV Lasix. Patient will be admitted to telemetry Diagnostic Imaging: Viewed by Me: Radiology Read. Radiology Impression: acute abnormality Initial ED EKG: sINUS TACHYCARDIA [address] ABNORMALITIES Prior EKG: unchanged Comments: PATIENT: DENIA ROSARIO PRESENT AGE: 64 PATIENT ACCOUNT NO: [id number] : 51 LOCATION: [facility] ORDERING PHYSICIAN: DESI WAGNER MD SERVICE DATE: 10/12/15- EXAM TYPE: CARD - ECHOCARDIOGRAM DENIA ROSARIO Age: 64 : 1950 Gender: M Exam Date: 10/12/2015 09:12 Exam Location: [address] [place] [address] Ht (in): 70 Wt (lb): 218 BSA: 2.24 BP: 108 / 62 Ordering Physician: DESI WAGNER MD Referring Physician: Emily Martel MD Technologist: Queenie Stack MEG Room Number: 179-01 Indications: HEART FAILURE Rhythm: Technical Quality: FINDINGS Left Ventricle Normal size left ventricle. Left ventricular wall thickness mildly increased. Mildly abnormal left ventricular ejection fraction estimated at 45-50%. (Ezra Wallis) Departure Departure Disposition: STILL A PATIENT Clinical Impression Primary Impression: CHF exacerbation Referrals: Verna ECKERT,Jigna Christie (PCP/Family) Departure Forms: Customer Survey General Discharge Information Admission Note Spoke With: Alex Calderon MD Documentation of Exam: Documentation of any treatments & extenuating circumstances including Concerns Regarding Discharge (functional status, medication knowledge or non-compliance, living conditions, etc.) that warrant an admission rather than observation: [ Patient doctor who agrees with telemetry admission for concerns a CHF exacerbation which patient requires repeat labs continuous KIDNEY LAB monitoring IV Lasix echocardiogram cardiology consultation repeat serial enzymes of troponin Image patient has failed outpatient treatment of by mouth Lasix] (Ezra Wallis) Departure Condition: Stable PA/GENERAL ACCOUNTANT Co-Sign Statement Statement: ED Attending supervision documentation- [X] I saw and evaluated the patient. I have also reviewed all the pertinent lab results and diagnostic results. I agree with the findings and the plan of care as documented in the PA's/GENERAL ACCOUNTANT's documentation. 09/09/17, 21:00... Pt is resting comfortably with likely chf exacerbation. pt also with kidney transplant... pt to be admitted to iv lasix and further care. team will coordinate with [place] transplant team. [] I have reviewed the ED Record and agree with the PA's/GENERAL ACCOUNTANT's documentation. [] Additions or exceptions (if any) to the PAs/GENERAL ACCOUNTANT's note and plan are summarized below: [] (Chelsea ECKERT,Tj Zavaal) Critical Care Note Critical Care Note Critical Care Time: 30-74 min (Ezra Wallis)
--- NOTE | 2017-09-09 19:28 | RADIOLOGY REPORT ---
EXAMINATION: XR CHEST CLINICAL INFORMATION: Shortness of breath cough COMPARISON: Prior chest September 2016. CT chest September 2016. TECHNIQUE: 2 views of the chest were obtained. FINDINGS: Lung volumes are decreased. There are small bilateral pleural effusions. There is increased interstitial markings bilaterally. The cardiac silhouette and pulmonary vascularity are normal. Calcification of the dorsal aorta. IMPRESSION: Findings suggestive of pulmonary edema and/or CHF.
[2017-09-09] MEDS ORDERED: MAGNESIUM400 M1 PO (20:24)
[2017-09-09] MEDS ORDERED: ELIQUIS5 M1 PO (20:25)
[2017-09-09] MEDS ORDERED: METOPROLOL TART25 M1 PO (20:25)
[2017-09-09] MEDS ORDERED: LASIX40 M1 PO (20:25)
[2017-09-09] MEDS ORDERED: CELLCEPT250 MG PO (20:26)
[2017-09-09] MEDS ORDERED: SENSIPAR60 M1 PO (20:27)
[2017-09-09] MEDS ORDERED: BACTRIM 400-801 EACH PO (20:28)
[2017-09-09] MEDS ORDERED: LEVEMIR100 UNIT/1 SC (20:28)
[2017-09-09] MEDS ORDERED: NULOJIX250 MG IV (20:32)
--- NOTE | 2017-09-09 22:31 | History & Physical ---
Florentin Anguiano MD 09/09/17 0430: General Information and HPI MD Statement: I have seen and personally examined DENIA ROSARIO and documented this H&P. The patient is a 66 year old M who presented with a patient stated chief complaint of [worsening dyspnea on exertion]. Source of Information: patient, family Exam Limitations: no limitations History of Present Illness: Patient is a 66-year-old male with a PMH significant for recent renal transplant with a complicated hospital course including PE and pneumonia, HTN, HLD, DM, MARY on CPAP, questionable diagnosis of COPD who presents with worsening dyspnea on exertion. He was discharged from rehabilitation from his renal transplant hospital stay on August 01 and since that time he has had dyspnea on exertion. He has been working with physical therapy and over the last week he notes significantly worsening dyspnea on exertion. While working with PT with the last week his O2 sat dropped to 81%. Prior to admission he would get short of breath with minimal exertion. He endorses orthopnea and worsening leg swelling. He denies any chest pain, palpitations, diaphoresis, nausea, vomiting, fever, chills. He Follows with Dr. Marcano and was recently seen and scheduled for an echo which she had to cancel due to scheduling. 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 Home Who Do You Live With? spouse Services at Home: None Primary Language: Lao Smoking Status: Never Smoked ETOH Use: occasional use Illicit Drug Use: denies illicit drug use Functional Ability ADLs Independent: dressing, eating, toileting, bathing. Ambulation: walker IADLs Independent: shopping, finances, telephone, medication admin. Review of Systems Review of Systems Constitutional: Denies: chills, diaphoresis, fever, malaise. EENTM: Denies: blurred vision, double vision, visual changes. Cardiovascular: Reports: orthopena, peripheral edema. Denies: chest pain, palpitations, syncope. Respiratory: Reports: short of breath. Denies: cough, sputum production. GI: Reports: no symptoms. Genitourinary: Reports: no symptoms. Musculoskeletal: Reports: no symptoms. Skin: Reports: no symptoms. Neurological/Psychological: Reports: no symptoms. Exam & Diagnostic Data Last 24 Hrs of Vital Signs/I&O Vital Signs Date Time Temp Pulse Resp B/P B/P Pulse O2 O2 Flow FiO2 Mean Ox Delivery Rate 09/10 0654 98.7 96 18 144/78 95 Room Air 09/10 0244 67 95 09/10 0033 97.9 92 18 138/70 96 Nasal Cannula 09/10 0024 96 Nasal 2.0L Cannula 09/09 2207 98.0 103 18 156/76 100 Nasal 2.0L Cannula 09/09 1932 98.4 102 18 149/67 94 Room Air 09/09 1727 94 Nasal 2.0L Cannula 09/09 1703 98.8 106 20 165/82 98 Room Air Intake & Output 09/10 0800 09/10 0000 09/09 1600 Intake Total 200 0 Output Total 400 600 Balance -200 -600 Intake, Oral 200 0 Output, Urine 400 600 Patient 210 lb 212 lb Weight Weight Reported by Patient Reported by Patient Measurement Method Physical Exam General Appearance Alert, Oriented X3, Cooperative, No Acute Distress Skin Temp/Moisture Exam: Warm/Dry Sepsis Skin Exam (color): Normal for Ethnicity HEENT Atraumatic, PERRLA, EOMI, Mucous Membr. moist/pink Cardiovascular Regular Rate, Normal S1, Normal S2 Lungs mild respiratory distress, not using accessory muscles, able to speak in full sentences, becomes SOB with minimal exertion, diminished breath sounds, bibasilar crackles Abdomen Normal Bowel Sounds, Soft, No Tenderness Neurological Normal Speech, Strength at 5/5 X4 Ext, Normal Tone, Sensation Intact, Cranial Nerves 3-12 NL Extremities 2-3+ dependent pitting edema of the LEs bilaterally Last 24 Hrs of Labs/Elijah: Laboratory Tests 09/10/17 0645: Sodium Pending, Potassium Pending, Chloride Pending, Carbon Dioxide Pending, Anion Gap Pending, BUN Pending, Creatinine Pending, BUN/Creatinine Ratio Pending , CBC w Diff Pending, WBC Pending, RBC Pending, Hgb Pending, Hct Pending, MCV Pending, MCH Pending, MCHC Pending, RDW Pending, Plt Count Pending, MPV Pending 09/10/17 0115: Troponin I 0.04 09/09/17 1701: Anion Gap 13, Estimated GFR 36 L, BUN/Creatinine Ratio 25.3 H, Glucose 161 H, Calcium 10.5 H, Total Bilirubin 0.3, AST 14 L, ALT 24, Alkaline Phosphatase 101, Troponin I 0.02, [id number] Pept 48685 H, Total Protein 6.2 L, Albumin 3.7, Globulin 2.5, Albumin/Globulin Ratio 1.5, D-Dimer High Sensitivty 251 H, CBC w Diff NO MAN DIFF REQ, RBC 4.80, MCV 64.5 L, MCH 19.4 L, MCHC 30.0 L, RDW 17.6 H, MPV 7.7, Gran % 86.4 H, Lymphocytes % 4.4 L, Monocytes % 6.9, Eosinophils % 1.9, Basophils % 0.4, Absolute Granulocytes 9.8 H, Absolute Lymphocytes 0.5 L, Absolute Monocytes 0.8 H, Absolute Eosinophils 0.2, Absolute Basophils 0 Microbiology 09/09 1734 NASOPHARYN: Influenza Virus A & B Rapid Smear - COMP Diagnostic Data EKG Results NSR, PVC, HR 93, CXR Results Lung volumes are decreased. There are small bilateral pleural effusions. There is increased interstitial markings bilaterally. The cardiac silhouette and pulmonary vascularity are normal. Calcification of the dorsal aorta. IMPRESSION: Findings suggestive of pulmonary edema and/or CHF. Assessment/Plan Assessment: Patient is a 66-year-old male with a PMH significant for recent renal transplant with a complicated hospital course including PE and pneumonia, HTN, HLD, DM, MARY on CPAP, questionable diagnosis of COPD who presents with worsening dyspnea on exertion. Patient's chest x-ray was suggestive of pulmonary edema/CHF, along with elevated proBNP and signs of fluid overload including orthopnea, worsening dyspnea on exertion, crackles on exam pulmonary exam, dependent pitting edema of the lower extremities is likely a CHF exacerbation. The ED staff contacted the patient's nephrology group at [place] who were on board with treating this likely CHF exacerbation with high-dose IV Lasix. Problem list #CHF exacerbation #Recent renal transplant #History of PE, HTN, HLD, DM, MARY, questionable diagnosis of COPD Plan -Admit to telemetry -Continue telemetry monitoring -Rule out ACS with serial troponins and EKGs -A.m. cardiology consult with supervisor stone braille operator, Dr. Marcano is aware of this admission -Echocardiogram -IV Lasix 60 mg twice a day -Nephrology consult placed with supervisor stone firewall security engineer -Strict I's and O's and daily weights -Nocturnal CPAP -Continue home medications including Bactrim, CellCept, Sensipar, Eliquis, Lipitor, Lopressor, Levemir, aspirin, Plavix -Accu-Cheks 3 times a day before meals at bedtime, sliding insulin scale -Diabetic diet -DVT prophylaxis: CARLYN Le -CODE STATUS: Full code As Ranked By This Provider Problem List: 1. CHF exacerbation Core Measures/Misc (04/17) Acute Coronary Syndrome ACS Diagnosis: No Congestive Heart Failure Congestive Heart Failure Diagnosis Yes Last Known EF % 50 Cerebrovascular Accident CVA/TIA Diagnosis: No VTE (View Protocol) VTE Risk Factors VTE (Previous) No Mechanical VTE Prophylaxis d/t N/A MechProphylax Ordered No VTE Pharm Prophylaxis d/t NA PharmProphylax ordered Sepsis (View protocol) Sepsis Present: No Merrick Cullen MD 09/10/17 0255: Resident Review Statement Resident Statement: examined this patient, discussed with internet designer Other Findings: [id number] gentleman with a past medical history of hypertension, hyperlipidemia, diabetes, obstructive sleep apnea on CPAP, probable COPD, recent kidney transplant with subsequent complication including pneumonia and PE requiring extended stay at [facility], presents for evaluation of progressively worsening dyspnea on exertion. Impression * Decompensated heart failure as evident by physical exam positive for bilateral crackles, elevated proBNP, and chest x-ray suggestive of vascular congestion. * History of recent renal transplant on immunosuppressant * Hx Of chronic diseases; hypertension, hyperlipidemia, diabetes, MARY, pulmonary embolism Plan Admit to telemetry for close cardiac monitoring Will continue to trend troponin and EKG to rule out ACS IV Lasix 60 mg twice a day (ED staff was in contact with nephrology from/ transplant specialist a year old WITH patient receiving high diuresis doses if needed) strict ins and outs Nephrology consulted Cardiology consult (patient's as requested Dr. Marcano) Continue immunosuppressant CellCept and antibiotic Bactrim Accu-Chek 3 times a day and NovoLog sliding scale and Levemir DVT prophylaxis; addressed by trey Calderon MD, [facility] 09/10/17 0611: General Information and HPI Allergies/Medications Home Med list Apixaban (Eliquis) 5 MG TABLET 1 TAB PO BID BLOOD THINNER (Reported) Aspirin (Ecotrin*) 81 MG TABLET.DR 1 TAB PO DAILY HEART/BLOOD (Reported) Belatacept (Nulojix) (Unknown Strength) VIAL (Unknown Dose) IV Q30D TRANSPLANT (Reported) Cinacalcet HCl (Sensipar) 60 MG TABLET 1 TAB PO DAILY RENAL (Reported) Docusate Sodium (Stool Softener) 100 MG TABLET 1 TAB PO DAILY STOOL SOFTENER (Reported) Furosemide (Lasix) 40 MG TABLET 1 TAB PO DAILY DIURETIC (Reported) Glipizide 5 MG TABLET 0.5 TAB PO DAILY DIABETES (Reported) Insulin Detemir (Levemir) 100 UNIT/ML VIAL 8 UNITS SC QPM DM (Reported) Magnesium Oxide (Magnesium) 400 MG CAPSULE 1 CAP PO DAILY SUPPLEMENT ( Reported) Metoprolol Tartrate 25 MG TABLET 0.5 TAB PO BID HEART/BP (Reported) Mycophenolate Mofetil (Cellcept) 250 MG CAPSULE 4 CAP PO BID TRANSPLANT ( Reported) Cooter-3 Fatty Acids (Cooter-3) (Unknown Strength) CAPSULE (Unknown Dose) PO DAILY SUPPLEMENT (Reported) Rosuvastatin Calcium (Crestor) 5 MG TABLET 1 TAB PO DAILY CHOLESTEROL ( Reported) Sulfamethoxazole/Trimethoprim (Bactrim 400-80 MG Tablet) 400 MG-80 MG TABLET 1 TAB PO Tuesday ABX (Reported) Vit C/E/Zn/Coppr/Lutein/Zeaxan (Preservision Areds 2 Softgel) 250-200-40 CAPSULE 1 CAP PO BID SUPPLEMENT (Reported) Attending MD Review Statement Attending Statement Attending MD Statement: examined this patient, discuss w/resident/PA/PHONE REPRESENTATIVE, agreed w/resident/PA/PHONE REPRESENTATIVE, discussed with family, reviewed images, amended to note Attending Assessment/Plan: 66 yo M with h/o HTN, COPD, MARY on CPAP, restrictive lung disease, chronic diastolic heart failure, recent renal transplant (Apr 2017) at [facility] wherein hospital course was c/b sepsis, pneumonia and PE for which patient is on eliquis. He was then discharged after 2 onths to Rehab and finally came home on Aug 03. He is here for evaluation of exertional dyspnea (with minimal exertion ) for the past 1 week. This has been ongoing since he was discharged home. While he works with PT, he tends to get hypoxic and tachycardic. C/o orthopnea and worsening LE swelling. He was seen by Dr. Marcano 2 days ago, EKG was ok and was scheduled for an echo. Patient is on Cellcept and Bactrim post transplant. He also receives IV infusion of Belatacept once every 4 weeks. Vitals stable. Exam: AAO, in moderate distress, able to speak in short sentences, Neck supple, Chest bibasilar crackles+, Heart S1S2 regular, systolic murmur+, LE: b/l 2+ pitting edema. Labs: WBC 11.3, H/H 9.3/31, microcytic anemia, Plt 336,K 5.2, bicarb 21, BUN 48, creat 1.9, glucose 161, Ca 10.5, trop 0.02, proBNP 18697. Rapid flu negative. CXR: pulmonary edema. Echo (2015): EF 45-50%, LVH, mild left atrial enlargement. EKG: sinus tachycardia with PVC's, nonspecific IVCD. Assessment and plan: 1. Fluid overload, pulmonary edema acute exacerbation of chronic congestive heart failure 2. Status post renal transplant immunocompromised on Cellcept and Bactrim prophylaxis 3. Abnormal renal functions 4. History of COPD 5. History of sleep apnea on CPAP - Admit to Telemetry - Monitor for arrhythmias - IV lasix 60 mg given in ER after discussion with Dr. Malick Sanders ([place] firewall security engineer [phone]) with effective diuresis of about 1000 mls - Continue IV lasix 60 BID - Strict I and O's, daily weights - Monitor renal functions - Serial EKG and troponin - Obtain echocardiogram - Cardio and Nephro consults - Continue cellcept and bactrim - Check urinalysis and urine culture - Diabetes management patient is currently on levemir and is in the process to transition to glipizide. Will continue novolog SS and levemir while inpatient. DVT ppx Eliquis. Full code Patient's is a [employer] employee
[2017-09-10 00:33] VITALS: BP 138/70
--- NOTE | 2017-09-10 00:52 | Admission Certification ---
Admission Certification Certification Statement - As attending physician, I certify that at the time of - admission, based on clinical presentation, severity of - symptoms, need for further diagnostic testing and - therapeutic interventions, and risk of adverse outcomes - without in-hospital treatment, in my clinical assessment, - this patient requires an acute hospital stay for a minimum - of two nights or longer. I have also considered psychsocial - factors such as support system, advanced age, financial - issues, cognitive issues, and failed out-patient treatments, - past re-admission history, safety of patient, and lack of - compliance as applicable. Specific rationale supporting this admission is: Acute exacerbation of congestive heart failure.
[2017-09-10] MEDS ORDERED: GLIPIZIDE5 M2 PO (03:16)
[2017-09-10 06:54] VITALS: BP 144/78
[2017-09-10 08:32] LABS: ABSOLUTE BASOPHIL COUNT 0 /CUMM (0.0-0.2); ABSOLUTE EOSINOPHIL COUNT 0.2 /CUMM (0.0-0.7); ABSOLUTE LYMPH COUNT 0.6 /CUMM (1.2-3.4); BASOPHIL % 0 % (0.0-2.0); EOSINOPHIL % 2.2 % (0-5); GRANULOCYTE % 83.5 % (42.2-75.2); MEAN CORPUSCULAR HGB 19.5 PG (27.0-31.0); MEAN CORPUSCULAR HGB CONC 29.8 G/DL (33.0-37.0); MEAN CORPUSCULAR VOLUME 65.3 FL (80.0-94.0); MEAN PLATELET VOLUME 7.8 FL (7.4-10.4); PLATELET COUNT 341 /CUMM (130-400); RED BLOOD CELL CT 4.75 /CUMM (4.70-6.10); WHITE BLOOD CELL COUNT 10.7 /CUMM (4.8-10.8)
--- NOTE | 2017-09-10 09:11 | PN- Housestaff ---
See Addendum Subjective Follow-up For: CHF exacerbation Recent renal transplant History of PE, HTN, HLD, DM, MARY, questionable diagnosis of COPD Subjective: Patient was seen and examined today. Continues to complain of SOB. Is unsure if it has improved as he has been in bed mostly. Was okay when he was ambulating to use the bathroom. States leg swelling has improved. Denies chest pain, palpitations, fever, chills, n/v/c/d, hematuria/dysuria. Patient states he has chronic back pain for the last 6 years. Does not take anything for the pain. No acute events overnight. Review of Systems Constitutional: Reports: no symptoms. Cardiovascular: Reports: see HPI, edema. Respiratory: Reports: see HPI, short of breath. Gastrointestinal: Reports: no symptoms. Genitourinary: Reports: no symptoms. Musculoskeletal: Reports: back pain (chronic). Skin: Reports: no symptoms. Neurological/Psychological: Reports: no symptoms. Objective Last 24 Hrs of Vital Signs/I&O Vital Signs Date Time Temp Pulse Resp B/P B/P Pulse O2 O2 Flow FiO2 Mean Ox Delivery Rate 09/10 0654 98.7 96 18 144/78 95 Room Air 09/10 0244 67 95 09/10 0033 97.9 92 18 138/70 96 Nasal Cannula 09/10 0024 96 Nasal 2.0L Cannula 09/09 2207 98.0 103 18 156/76 100 Nasal 2.0L Cannula 09/09 1932 98.4 102 18 149/67 94 Room Air 09/09 1727 94 Nasal 2.0L Cannula 09/09 1703 98.8 106 20 165/82 98 Room Air Intake & Output 09/10 1600 09/10 0800 09/10 0000 Intake Total 200 0 Output Total 400 600 Balance -200 -600 Intake, Oral 200 0 Output, Urine 400 600 Patient 210 lb 212 lb Weight Weight Reported by Patient Reported by Patient Measurement Method Physical Exam General Appearance: Alert, Oriented X3, Cooperative, No Acute Distress HEENT: Atraumatic, PERRLA, EOMI, Mucous Membr. moist/pink Cardiovascular: Normal S1, Normal S2 Lungs: diminished breath sounds, bibasilar crackles Abdomen: Normal Bowel Sounds, Soft, No Tenderness Neurological: Normal Speech Extremities: No Clubbing, No Cyanosis, Normal Pulses, No Tenderness/Swelling, trace edema bilaterally Vascular: Normal Pulses, Pulses Symmetrical Current Medications: Current Medications Sig/Eron Start time Last Medication Dose Route Stop Time Status Admin Amlodipine Besylate 5 MG DAILY 09/10 1000 CAN PO Amlodipine Besylate 5 MG ONCE ONE 09/10 0300 CAN PO 09/10 0301 Apixaban 5 MG BID 09/10 1000 AC PO Aspirin Buffered 81 MG DAILY 09/10 1000 AC PO Atorvastatin Calcium 20 MG 1700 09/10 1700 AC PO Cinacalcet 60 MG DAILY 09/10 1000 AC PO Docusate Sodium 100 MG DAILY 09/10 1000 AC PO Fish Oil 1,050 MG DAILY 09/10 1000 AC PO Furosemide 60 MG 7:30 AM, & 4:30 PM 09/10 0730 AC IV Furosemide 60 MG ONCE ONE 09/09 2114 DC 09/09 IV 09/09 Furosemide 0 .STK-MED ONE 09/09 2102 DC IV Furosemide 60 MG ONCE ONE 09/09 1999 CAN IV 09/09 2000 Furosemide 0 .STK-MED ONE 09/09 1999 DC IV Furosemide 0 .STK-MED ONE 09/09 1958 DC IV Insulin Detemir 4 UNITS BID 09/10 1000 AC SC Magnesium Oxide 400 MG DAILY 09/10 1000 AC PO Metoprolol Tartrate 12.5 MG BID 09/10 1000 AC PO Mycophenolate Mofetil 1,000 MG BID 09/10 1000 AC PO Trimethoprim/ 1 TAB TUESDAY WED TUESDAY 09/12 1000 AC Sulfamethoxazole PO Last 24 Hrs of Lab/Elijah Results Last 24 Hrs of Labs/Mics: Laboratory Tests 09/10/17 0916: Troponin I Pending 09/10/17 0645: Anion Gap 12, Estimated GFR 34 L, BUN/Creatinine Ratio 23.5, CBC w Diff MAN DIFF ORDERED, WBC Pending, RBC Pending, Hgb Pending, Hct Pending, MCV Pending, MCH Pending, MCHC Pending, RDW Pending, Plt Count Pending, MPV Pending, Gran % Pending, Lymphocytes % Pending, Monocytes % Pending, Eosinophils % Pending, Basophils % Pending, Absolute Granulocytes Pending, Segmented Neutrophils Pending, Absolute Lymphocytes Pending, Absolute Monocytes Pending, Absolute Eosinophils Pending, Absolute Basophils Pending 09/10/17 0115: Troponin I 0.04 09/09/17 1701: Anion Gap 13, Estimated GFR 36 L, BUN/Creatinine Ratio 25.3 H, Glucose 161 H, Calcium 10.5 H, Total Bilirubin 0.3, AST 14 L, ALT 24, Alkaline Phosphatase 101, Troponin I 0.02, [id number] Pept 64948 H, Total Protein 6.2 L, Albumin 3.7, Globulin 2.5, Albumin/Globulin Ratio 1.5, D-Dimer High Sensitivty 251 H, CBC w Diff NO MAN DIFF REQ, RBC 4.80, MCV 64.5 L, MCH 19.4 L, MCHC 30.0 L, RDW 17.6 H, MPV 7.7, Gran % 86.4 H, Lymphocytes % 4.4 L, Monocytes % 6.9, Eosinophils % 1.9, Basophils % 0.4, Absolute Granulocytes 9.8 H, Absolute Lymphocytes 0.5 L, Absolute Monocytes 0.8 H, Absolute Eosinophils 0.2, Absolute Basophils 0 Microbiology 09/09 1734 NASOPHARYN: Influenza Virus A & B Rapid Smear - COMP Orders Radiology Findings: CXR IMPRESSION: Findings suggestive of pulmonary edema and/or CHF. Assessment/Plan Assessment: Patient is a 66-year-old male with a PMH significant for recent renal transplant with a complicated hospital course including PE and pneumonia, HTN, HLD, DM, MARY on CPAP, questionable diagnosis of COPD who presents with worsening dyspnea on exertion. Patient's chest x-ray was suggestive of pulmonary edema/CHF, along with elevated proBNP and signs of fluid overload including orthopnea, worsening dyspnea on exertion, crackles on exam pulmonary exam, dependent pitting edema of the lower extremities is likely a CHF exacerbation. The ED staff contacted the patient's nephrology group at [place] who were on board with treating this likely CHF exacerbation with high-dose IV Lasix. Today patient's breathing and lower extremity edema is improving. Currently saturating in the 90s on 2LNC. Troponin and EKG have been wnl. Patient is to be seen by cardiology and nephrology today. Will continue patient's current regimen pending their recommendations. Patient's was at bedside. States patient requires his celicept every 12 hours. Please ensure it is given on time. Problem list #CHF exacerbation #Recent renal transplant #History of PE, HTN, HLD, DM, MARY, questionable diagnosis of COPD Plan -Admitted to telemetry -Continue telemetry monitoring -Rule out ACS with serial troponins and EKGs -Cardiology consulted. Dr. Marcano is patient's inspector machine cut glass and is aware -Echocardiogram pending -IV Lasix 60 mg twice a day -Nephrology consulted. Recommendations pending -Strict I's and O's and daily weights -Nocturnal CPAP -Continue home medications including Bactrim, CellCept, Sensipar, Eliquis, Lipitor, Lopressor, Levemir, aspirin, Plavix -Accu-Cheks 3 times a day before meals at bedtime, sliding insulin scale -Diabetic diet -DVT prophylaxis: CARLYN Le -CODE STATUS: Full code Problem List: 1. CHF exacerbation Pain Ratin Pain Location: back pain Pain Goal: Pain 4 or less Pain Plan: tylenol PRN Tomorrow's Labs & Rationales: bep - on lasix cbc
--- NOTE | 2017-09-10 11:37 | Cons- Nephrology ---
General Information and HPI Consulting Request Date of Consult: 09/10/17 Requested By: Kvng ECKERT,Alex History of Present Illness: 66 yo male with h/o ESRD, previously on PD but DDKT in April 2017. Course was complicated by prlonged hospitalization with periplhnephric abscess, SBO, hypercapneic respiratory failure, delayed graft function. He has had episodes of acute worsening of his breathing in past, responded to diuresis. Has had normal LV function on echo in July 2017. Now admitted with worsening SOB over several days. He came to ED where BMP was very high. CXR showed bibasailar effusions and hazziness. He was treated with Lasix, had net output of about 1 liter but doesn't feel much better. Allergies/Medications Allergies: Coded Allergies: tetrahydrozoline (BELIEVES HE HAD A COUGH, UNSURE 10/10/15) Home Med List: Apixaban (Eliquis) 5 MG TABLET 1 TAB PO BID BLOOD THINNER (Reported) Aspirin (Ecotrin*) 81 MG TABLET.DR 1 TAB PO DAILY HEART/BLOOD (Reported) Belatacept (Nulojix) (Unknown Strength) VIAL (Unknown Dose) IV Q30D TRANSPLANT (Reported) Cinacalcet HCl (Sensipar) 60 MG TABLET 1 TAB PO DAILY RENAL (Reported) Docusate Sodium (Stool Softener) 100 MG TABLET 1 TAB PO DAILY STOOL SOFTENER (Reported) Furosemide (Lasix) 40 MG TABLET 1 TAB PO DAILY DIURETIC (Reported) Glipizide 5 MG TABLET 0.5 TAB PO DAILY DIABETES (Reported) Insulin Detemir (Levemir) 100 UNIT/ML VIAL 8 UNITS SC QPM DM (Reported) Magnesium Oxide (Magnesium) 400 MG CAPSULE 1 CAP PO DAILY SUPPLEMENT ( Reported) Metoprolol Tartrate 25 MG TABLET 0.5 TAB PO BID HEART/BP (Reported) Mycophenolate Mofetil (Cellcept) 250 MG CAPSULE 4 CAP PO BID TRANSPLANT ( Reported) [place]-3 Fatty Acids ([place]-3) (Unknown Strength) CAPSULE (Unknown Dose) PO DAILY SUPPLEMENT (Reported) Rosuvastatin Calcium (Crestor) 5 MG TABLET 1 TAB PO DAILY CHOLESTEROL ( Reported) Sulfamethoxazole/Trimethoprim (Bactrim 400-80 MG Tablet) 400 MG-80 MG TABLET 1 TAB PO Tuesday ABX (Reported) Vit C/E/Zn/Coppr/Lutein/Zeaxan (Preservision Areds 2 Softgel) 250-200-40 CAPSULE 1 CAP PO BID SUPPLEMENT (Reported) Review of Systems Review of Systems: Negative except as noted above. Past History Travel History Traveled to [place] past 21 day No Medical History Blood Transfusion Hx: Yes Neurological: NONE EENT: NONE Cardiovascular: CAD, CHF, hypertension, hyperlipidemia Respiratory: NONE, COPD, obstructive sleep apnea, pulmonary embolis Gastrointestinal: NONE Hepatic: NONE Renal: chronic kidney disease, renal transplant Musculoskeletal: gout Psychiatric: NONE Endocrine: diabetes Blood Disorders: NONE Cancer(s): prostate cancer CLINICAL SYSTEMS ANALYST/Reproductive: NONE Other Medical Hx: Apparently has been on list for kidney transplant for 6 years Surgical History Surgical History: appendectomy, prostatectomy, BACK SURGERY - 3 YEARS AGO T + A tonsillectomy as a child RIGHT KIDNEY TRANSPLANT, orchiectomy, renal transplant Family History Relations & Conditions If Any: MOTHER FH: CAD (coronary artery disease) FH: cancer FH: Parkinson's disease FHx: diabetes mellitus FATHER FH: hyperlipidemia Psychosocial History Where Do You Live? Home Who Do You Live With? spouse Services at Home: None Primary Language: Spanish Smoking Status: Former Smoker ETOH Use: occasional use Illicit Drug Use: denies illicit drug use Functional Ability ADLs Independent: dressing, eating, toileting, bathing. Ambulation: walker IADLs Independent: shopping, finances, telephone, medication admin. Exam & Diagnostic Data Vital Signs and I&O Vital Signs Date Time Temp Pulse Resp B/P B/P Pulse O2 O2 Flow FiO2 Mean Ox Delivery Rate 09/10 1012 Nasal 1.0L Cannula 09/10 0957 96 144/78 09/10 0654 98.7 96 18 144/78 95 Room Air 09/10 0244 67 95 09/10 0033 97.9 92 18 138/70 96 Nasal Cannula 09/10 0024 96 Nasal 2.0L Cannula 09/09 2207 98.0 103 18 156/76 100 Nasal 2.0L Cannula 09/09 1932 98.4 102 18 149/67 94 Room Air 09/09 1727 94 Nasal 2.0L Cannula 09/09 1703 98.8 106 20 165/82 98 Room Air Intake & Output 09/10 1600 09/10 0400 09/09 1600 09/09 0400 09/08 1600 09/08 040 Intake Total 200 0 Output Total 800 600 Balance -600 -600 Intake, Oral 200 0 Output, Urine 800 600 Patient 210 lb Weight Weight Reported by Patient Measurement Method Physical Exam: NAD VS as above. Eyes: anicteric, PERRL Neck: no mass or thyromegaly Skin: no rash or induration Nodes: negative cervical/inguinal Lungs: decreased breath sounds at bases with dullnes to percussion CV: no rub or murmur Abd: nontender, no organomegaly, BS positive Exts: trace edema bethany on right, absent pedal pulses Neuro: A&O, CN intact, no asterixis. Assessment/Plan Assessment/Recommendations Assessment: Renal transplant patient on Belatacept/MMF, not steroids. Next dose of Belacept due on 09/19. Admitted with SOB, CXR which is difficult to interpret with regards to CHF vs primary lung disesase. Nl LV function in July 2017. Had prolonged course post transplant and had a lot of pulmonary deconditioning. Baseline creatinine 1.6, has risen slightly with diuresis but acute rejection seems unlikely. Recommendations: Continue IV Lasix for one more day but if creatinine continues to rise will have to discontinue as I dont' think he is that volume overloaded. Await pumlonarly consult, he may get a non-contrast CT of lungs. Continue Cellcept at outpatient dose. Case was discussed with Dr. Sanders from transplant team.
--- NOTE | 2017-09-10 14:40 | Cons- Cardiology ---
General Information and HPI Consulting Request Date of Consult: 09/10/17 Requested By: Kvng ECKERT,Alex History of Present Illness: Mr. Patrick Kaba is a 66-year-old male with a history of hypertension , dyslipidemia, diabetes mellitus, restrictive/obstructive pulmonary disease, obstructive sleep apnea, gout, prostate carcinoma status post resection, ESRD w/ previous PD & DDKT 04/2017 with long hospitalization secondary to a complicated course (periplhnephric abscess, SBO, hypercapneic respiratory failure, delayed graft function, pulmonary embolism, pneumonia, etc.), chronic anemia, previously documented nonischemic cardiomyopathy that improved with standard therapy and more recent HFpEF who presented from home with a two-week history of progressive shortness of breath, mild edema, orthopnea, paroxysmal nocturnal dyspnea, without any associated chest discomfort, palpitations, significant weight gain, etc. Allergies/Medications Allergies: Coded Allergies: tetrahydrozoline (BELIEVES HE HAD A COUGH, UNSURE 10/10/15) Home Med List: Apixaban (Eliquis) 5 MG TABLET 1 TAB PO BID BLOOD THINNER (Reported) Aspirin (Ecotrin*) 81 MG TABLET.DR 1 TAB PO DAILY HEART/BLOOD (Reported) Belatacept (Nulojix) (Unknown Strength) VIAL (Unknown Dose) IV Q30D TRANSPLANT (Reported) Cinacalcet HCl (Sensipar) 60 MG TABLET 1 TAB PO DAILY RENAL (Reported) Docusate Sodium (Stool Softener) 100 MG TABLET 1 TAB PO DAILY STOOL SOFTENER (Reported) Furosemide (Lasix) 40 MG TABLET 1 TAB PO DAILY DIURETIC (Reported) Glipizide 5 MG TABLET 0.5 TAB PO DAILY DIABETES (Reported) Insulin Detemir (Levemir) 100 UNIT/ML VIAL 8 UNITS SC QPM DM (Reported) Magnesium Oxide (Magnesium) 400 MG CAPSULE 1 CAP PO DAILY SUPPLEMENT ( Reported) Metoprolol Tartrate 25 MG TABLET 0.5 TAB PO BID HEART/BP (Reported) Mycophenolate Mofetil (Cellcept) 250 MG CAPSULE 4 CAP PO BID TRANSPLANT ( Reported) [place]-3 Fatty Acids ([place]-3) (Unknown Strength) CAPSULE (Unknown Dose) PO DAILY SUPPLEMENT (Reported) Rosuvastatin Calcium (Crestor) 5 MG TABLET 1 TAB PO DAILY CHOLESTEROL ( Reported) Sulfamethoxazole/Trimethoprim (Bactrim 400-80 MG Tablet) 400 MG-80 MG TABLET 1 TAB PO Tuesday ABX (Reported) Vit C/E/Zn/Coppr/Lutein/Zeaxan (Preservision Areds 2 Softgel) 250-200-40 CAPSULE 1 CAP PO BID SUPPLEMENT (Reported) Past History Travel History Traveled to [place] past 21 day No Medical History Blood Transfusion Hx: Yes Neurological: NONE EENT: NONE Cardiovascular: CAD, CHF, hypertension, hyperlipidemia Respiratory: NONE, COPD, obstructive sleep apnea, pulmonary embolis Gastrointestinal: NONE Hepatic: NONE Renal: chronic kidney disease, renal transplant Musculoskeletal: gout Psychiatric: NONE Endocrine: diabetes Blood Disorders: NONE Cancer(s): prostate cancer 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 Home Who Do You Live With? spouse Services at Home: None Primary Language: Syrian Smoking Status: Former Smoker ETOH Use: occasional use Illicit Drug Use: denies illicit drug use Functional Ability ADLs Independent: dressing, eating, toileting, bathing. Ambulation: walker IADLs Independent: shopping, finances, telephone, medication admin. Exam & Diagnostic Data Vital Signs and I&O Vital Signs Date Time Temp Pulse Resp B/P B/P Pulse O2 O2 Flow FiO2 Mean Ox Delivery Rate 09/10 1012 Nasal 1.0L Cannula 09/10 0957 96 144/78 09/10 0654 98.7 96 18 144/78 95 Room Air 09/10 0244 67 95 09/10 0033 97.9 92 18 138/70 96 Nasal Cannula 09/10 0024 96 Nasal 2.0L Cannula 09/09 2207 98.0 103 18 156/76 100 Nasal 2.0L Cannula 09/09 1932 98.4 102 18 149/67 94 Room Air 09/09 1727 94 Nasal 2.0L Cannula 09/09 1703 98.8 106 20 165/82 98 Room Air Intake & Output 09/10 1600 09/10 0800 09/10 0000 09/09 1600 09/09 0809/09 0000 Intake Total 200 0 Output Total 800 400 600 Balance -800 -200 -600 Intake, Oral 200 0 Output, Urine 800 400 600 Patient 210 lb 212 lb Weight Weight Reported by Patient Reported by Patient Measurement Method Physical Exam: Well-developed, well-nourished elderly male in no acute distress with nasal oxygen in place. Vital signs: See above. Neck: No JVD, no bruits. Lungs: Decreased breath sounds at the bases. Heart: S1, S2. Grade 1-2/6 systolic murmur. Abdomen: Soft, nontender, positive bowel sounds. Extremities: No edema. Labs/Elijah Results: Laboratory Tests 09/10 09/10 09/10 0916 0645 0115 Chemistry Sodium (137 - 145 mmol/L) 140 Potassium (3.5 - 5.1 mmol/L) 5.0 Chloride (98 - 107 mmol/L) 104 Carbon Dioxide (22 - 30 mmol/L) 24 Anion Gap (5 - 16) 12 BUN (9 - 20 mg/dL) 47 H Creatinine (0.7 - 1.2 mg/dL) 2.0 H Estimated GFR (>60 ml/min) 34 L BUN/Creatinine Ratio (7 - 25 %) 23.5 Troponin I (<0.11 ng/ml) 0.03 0.04 Hematology CBC w Diff MAN DIFF ORDERED WBC (4.8 - 10.8 /CUMM) 10.7 RBC (4.70 - 6.10 /CUMM) 4.75 Hgb (14.0 - 18.0 G/DL) 9.2 L Hct (42 - 52 %) 31.0 L MCV (80.0 - 94.0 FL) 65.3 L MCH (27.0 - 31.0 PG) 19.5 L MCHC (33.0 - 37.0 G/DL) 29.8 L RDW (11.5 - 14.5 %) 18.0 H Plt Count (130 - 400 /CUMM) 341 MPV (7.4 - 10.4 FL) 7.8 Gran % (42.2 - 75.2 %) 83.5 H Lymphocytes % (20.5 - 51.1 %) 5.4 L Monocytes % (1.7 - 9.3 %) 8.9 Eosinophils % (0 - 5 %) 2.2 Basophils % (0.0 - 2.0 %) 0 Absolute Granulocytes (1.4 - 6.5 /CUMM) 9.0 H Absolute Lymphocytes (1.2 - 3.4 /CUMM) 0.6 L Absolute Monocytes (0.10 - 0.60 /CUMM) 1.0 H Absolute Eosinophils (0.0 - 0.7 /CUMM) 0.2 Absolute Basophils (0.0 - 0.2 /CUMM) 0 Platelet Estimate (ADEQUATE) ADEQUATE Polychromasia 1+ Hypochromic-Microcytic 2+ Poikilocytosis 3+ Anisocytosis 3+ Microcytic Cells 2+ Ovalocytes 2+ Elliptocytes 1+ Schistocytes 1+ 09/09 1701 Chemistry Sodium (137 - 145 mmol/L) 138 Potassium (3.5 - 5.1 mmol/L) 5.2 H Chloride (98 - 107 mmol/L) 105 Carbon Dioxide (22 - 30 mmol/L) 21 L Anion Gap (5 - 16) 13 BUN (9 - 20 mg/dL) 48 H Creatinine (0.7 - 1.2 mg/dL) 1.9 H Estimated GFR (>60 ml/min) 36 L BUN/Creatinine Ratio (7 - 25 %) 25.3 H Glucose (65 - 99 mg/dL) 161 H Calcium (8.4 - 10.2 mg/dL) 10.5 H Total Bilirubin (0.2 - 1.3 mg/dL) 0.3 AST (17 - 59 U/L) 14 L ALT (21 - 72 U/L) 24 Alkaline Phosphatase (< 127 U/L) 101 Troponin I (<0.11 ng/ml) 0.02 Ivx-S-Hspahmbszsq Pept (<125 pg/mL) 58152 H Total Protein (6.3 - 8.2 g/dL) 6.2 L Albumin (3.5 - 5.0 g/dL) 3.7 Globulin (1.9 - 4.2 gm/dL) 2.5 Albumin/Globulin Ratio (1.1 - 2.2 %) 1.5 Coagulation D-Dimer High Sensitivty (0 - 243 ng/ml) 251 H Hematology CBC w Diff NO MAN DIFF REQ WBC (4.8 - 10.8 /CUMM) 11.3 H RBC (4.70 - 6.10 /CUMM) 4.80 Hgb (14.0 - 18.0 G/DL) 9.3 L Hct (42 - 52 %) 31.0 L MCV (80.0 - 94.0 FL) 64.5 L MCH (27.0 - 31.0 PG) 19.4 L MCHC (33.0 - 37.0 G/DL) 30.0 L RDW (11.5 - 14.5 %) 17.6 H Plt Count (130 - 400 /CUMM) 336 MPV (7.4 - 10.4 FL) 7.7 Gran % (42.2 - 75.2 %) 86.4 H Lymphocytes % (20.5 - 51.1 %) 4.4 L Monocytes % (1.7 - 9.3 %) 6.9 Eosinophils % (0 - 5 %) 1.9 Basophils % (0.0 - 2.0 %) 0.4 Absolute Granulocytes (1.4 - 6.5 /CUMM) 9.8 H Absolute Lymphocytes (1.2 - 3.4 /CUMM) 0.5 L Absolute Monocytes (0.10 - 0.60 /CUMM) 0.8 H Absolute Eosinophils (0.0 - 0.7 /CUMM) 0.2 Absolute Basophils (0.0 - 0.2 /CUMM) 0 Diagnostic Data EKG Results 09/10/2017: Sinus rhythm, first-degree AV block, multiform VPCs, probable DOMENICO, IVCD, probable IMI, abnormal R-wave progression, and nondiagnostic ST-T wave abnormalities. CXR Results 09/09/2017: Findings suggestive of pulmonary edema and/or CHF. Assessment/Plan Assessment/Plan 66-y-o-w-m w/ hx HTN, HLD, DM, restrictive/obstructive pulmonary disease, MARY, gout, prostate ca s/p resection, ESRD w/ previous PD & DDKT 04/2017 with peolonged hospitalization 2/2 complicated course (periplhnephric abscess, SBO, hypercapneic respiratory failure, delayed graft function, pulmonary embolism, pneumonia, etc.), chronic anemia, previously documented nonischemic cardiomyopathy that improved with standard therapy and more recent HFpEF who presented from home w/ a two-week history of progressive SOB, mild edema, orthopnea, PND, w/o associated CP, palpitations, significant wt gain, etc., & physical, radiographic, laboratory findings c/w possible HF, but also possible exacerbation of his pulmonary problems. Recommendations: * Admit to telemetry, follow-up electrocardiogram, and note no significant troponin elevation. * Agree with continuing IV furosemide for 24 hours and reassess the need for further IV diuresis in the a.m. * Strict inputs/outputs, daily weights, etc. and repeat CXR following good diuresis. * Repeat echocardiogram in a.m. reassess LV systolic/diastolic function. * Pulmonary consultation. * Follow-up on nephrology recommendations. * DVT prophylaxis. Further recommendations will follow, Thank you. Consult Acknowledgment - Thank you for your consult request.
[2017-09-10 15:15] VITALS: BP 138/66
[2017-09-10 22:02] VITALS: BP 120/60
[2017-09-11 06:53] VITALS: BP 14/64
[2017-09-11 07:37] LABS: ABSOLUTE BASOPHIL COUNT 0 /CUMM (0.0-0.2); ABSOLUTE EOSINOPHIL COUNT 0.3 /CUMM (0.0-0.7); ABSOLUTE GRANULOCYTE CT 7.4 /CUMM (1.4-6.5); ABSOLUTE LYMPH COUNT 0.6 /CUMM (1.2-3.4); ABSOLUTE MONOCYTE COUNT 1.1 /CUMM (0.10-0.60); BASOPHIL % 0 % (0.0-2.0); EOSINOPHIL % 3.6 % (0-5); GRANULOCYTE % 78.9 % (42.2-75.2); HEMATOCRIT 29.1 % (42-52); MEAN CORPUSCULAR HGB 19.2 PG (27.0-31.0); MEAN CORPUSCULAR HGB CONC 29.4 G/DL (33.0-37.0); MEAN PLATELET VOLUME 7.8 FL (7.4-10.4); PLATELET COUNT 314 /CUMM (130-400); RBC DISTRIBUTION WIDTH 17.7 % (11.5-14.5); RED BLOOD CELL CT 4.44 /CUMM (4.70-6.10); WHITE BLOOD CELL COUNT 9.4 /CUMM (4.8-10.8)
[2017-09-11 07:46] LABS: MEAN CORPUSCULAR VOLUME 65.5 FL (80.0-94.0)
--- NOTE | 2017-09-11 10:05 | PN- Housestaff ---
See Addendum Subjective Follow-up For: CHF exacerbation Recent renal transplant History of PE, HTN, HLD, DM, MARY, questionable diagnosis of COPD Tele-Events Since Last Visit: Normal sinus rhythm, first-degree block Subjective: Patient visited today, was sitting at the bedside comfortably in no acute distress, was alert and oriented. No fever or chills, improved shortness of breathing, no chest pain, no other events. Was on 1.5 L of oxygen saturation more than 90%. CAT scan was requested and nebulizers were administered. Patient requested to be discharged as his dad . Review of Systems Constitutional: Reports: see HPI. Objective Last 24 Hrs of Vital Signs/I&O Vital Signs Date Time Temp Pulse Resp B/P B/P Pulse O2 O2 Flow FiO2 Mean Ox Delivery Rate 09/11 0830 63 136/64 09/11 0800 98 Nasal 1.5L Cannula 09/11 0653 98.0 63 18 14/64 98 Nasal Cannula 09/11 0018 75 95 09/11 0000 Nasal 1.5L Cannula 09/10 2202 98.0 90 18 120/60 96 Nasal 1.0L Cannula 09/10 2126 87 96 09/10 2109 90 120/60 09/10 1600 Nasal 1.5L Cannula 09/10 1515 98.3 89 18 138/66 96 Nasal 1.5L Cannula Intake & Output 09/11 1600 09/11 0800 09/11 0000 Intake Total 200 110 445 Output Total 275 300 575 Balance -75 -190 -130 Intake, IV 10 20 Intake, Oral 200 100 425 Number 0 Bowel Movements Output, Urine 275 300 575 Patient 200 lb 203 lb Weight Weight Bed scale Bed scale Measurement Method Physical Exam General Appearance: Alert, Oriented X3, Cooperative, No Acute Distress Skin: No Significant Lesion Skin Temp/Moisture Exam: Warm/Dry Sepsis Skin Exam (color): Normal for Ethnicity HEENT: Atraumatic, EOMI, Mucous Membr. moist/pink Cardiovascular: Regular Rate, Normal S1, Normal S2 Lungs: Normal Air Movement Abdomen: Soft, No Tenderness Current Medications: Current Medications Sig/Eron Start time Last Medication Dose Route Stop Time Status Admin Albuterol Sulfate 3 ML Q4H PRN 09/11 1145 AC INH Apixaban 5 MG BID 09/10 1000 AC 09/11 PO 0930 Aspirin Buffered 81 MG DAILY 09/10 1000 AC 09/11 PO 0930 Atorvastatin Calcium 20 MG 17009/10 1700 AC 09/10 PO 1708 Cinacalcet 60 MG 17009/10 1700 AC 09/10 PO 1707 Docusate Sodium 100 MG DAILY 09/10 1000 AC 09/11 PO 0930 Fish Oil 1,050 MG DAILY 09/10 1000 AC 09/11 PO 0930 Furosemide 60 MG 7:30 AM, & 4:30 PM 09/10 0730 AC 09/11 IV 0929 Insulin Detemir 4 UNITS BID 09/10 1000 AC 09/11 SC 0938 Magnesium Oxide 400 MG DAILY 09/10 1000 AC 09/11 PO 0930 Metoprolol Tartrate 12.5 MG BID 09/10 1000 AC 09/11 PO 0930 Mycophenolate Mofetil 1,000 MG BID 09/10 1000 AC 09/11 PO 0929 Trimethoprim/ 1 TAB 09/12 1000 AC Sulfamethoxazole PO Last 24 Hrs of Lab/Elijah Results Last 24 Hrs of Labs/Mics: Laboratory Tests 09/11/17 0600: Anion Gap 14, Estimated GFR 32 L, BUN/Creatinine Ratio 25.2 H, CBC w Diff NO MAN DIFF REQ, RBC 4.44 L, MCV 65.5 L, MCH 19.2 L, MCHC 29.4 L, RDW 17.7 H, MPV 7.8, Gran % 78.9 H, Lymphocytes % 6.0 L, Monocytes % 11.5 H, Eosinophils % 3.6, Basophils % 0, Absolute Granulocytes 7.4 H, Absolute Lymphocytes 0.6 L, Absolute Monocytes 1.1 H, Absolute Eosinophils 0.3, Absolute Basophils 0 09/10/17 1500: Urine Color YEL, Urine Clarity CLEAR, Urine pH 6.0, Ur Specific [place] 1.015, Urine Protein NEG, Urine Ketones NEG, Urine Nitrite NEG, Urine Bilirubin NEG, Urine Urobilinogen 0.2, Ur Leukocyte Esterase NEG, Ur Microscopic SEDIMENT EXAMINED, Urine RBC 1-3, Urine WBC 1-3 H, Ur Epithelial Cells RARE, Urine Hemoglobin TRACE-INTACT H, Urine Glucose NEG Microbiology 09/10 1500 URINE ROUT: Urine Culture - RES Assessment/Plan Assessment: Patient is a 66-year-old male with a PMH significant for recent renal transplant with a complicated hospital course including PE and pneumonia, HTN, HLD, DM, MARY on CPAP, questionable diagnosis of COPD who presents with worsening dyspnea on exertion. Patient's chest x-ray was suggestive of pulmonary edema/CHF, along with elevated proBNP and signs of fluid overload including orthopnea, worsening dyspnea on exertion, crackles on exam pulmonary exam, dependent pitting edema of the lower extremities is likely a CHF exacerbation. The ED staff contacted the patient's nephrology group at [facility] who were on board with treating this likely CHF exacerbation with high-dose IV Lasix. Today patient's breathing and lower extremity edema is improving.Troponin and EKG have been wnl. Patient is to be seen by cardiology and nephrology again today. Will continue patient's current regimen pending their recommendations. Patient's was at bedside. States patient requires his celicept every [address] scan was requested: Cardiomegaly with encouragement of the pulmonary vasculature and patchy airspace opacities bilaterally. This finding most likely represents sequela of CHF with prominent pulmonary edema. Superimposed infection would be difficult to exclude. Moderate right and small left pleural effusion. Stable chronic findings, as above. Problem list #CHF exacerbation #Recent renal transplant #History of PE, HTN, HLD, DM, MARY, questionable diagnosis of COPD Plan -Admitted to telemetry -Continue telemetry monitoring -Rule out ACS with serial troponins and EKGs -Cardiology consulted. Dr. Marcano is patient's cloth examiner hand and is aware -Echocardiogram pending -IV Lasix 60 mg twice a day -Nephrology consulted. Recommendations pending -Strict I's and O's and daily weights -Nocturnal CPAP -Continue home medications including Bactrim, CellCept, Sensipar, Eliquis, Lipitor, Lopressor, Levemir, aspirin, Plavix -Accu-Cheks 3 times a day before meals at bedtime, sliding insulin scale -Diabetic diet -Nebs were administered, respiratory was contacted to make sure that patient will receive nebs -DVT prophylaxis: CARLYN Le -CODE STATUS: Full code Problem List: 1. CHF exacerbation Pain Ratin Pain Location: None Pain Goal: Pain 4 or less Pain Plan: Continue current plan Tomorrow's Labs & Rationales: Cbc BEP
--- NOTE | 2017-09-11 10:45 | PN- Nephrology ---
Assessment/Plan Assessment: Some improvement in respiratory status. Creatinine up slightly. Suggestion: Await chest CT. Continue Lasix one more day. Subjective Subjective: Patient thinks his breathing is somewhat better. Awaiting CT scan. Objective Vital Signs and I&Os Vital Signs Date Time Temp Pulse Resp B/P B/P Pulse O2 O2 Flow FiO2 Mean Ox Delivery Rate 09/11 0830 63 136/64 09/11 0653 98.0 63 18 14/64 98 Nasal Cannula 09/11 0018 75 95 09/11 0000 Nasal 1.5L Cannula 09/10 2202 98.0 90 18 120/60 96 Nasal 1.0L Cannula 09/10 2126 87 96 09/10 2109 90 120/60 09/10 1600 Nasal 1.5L Cannula 09/10 1515 98.3 89 18 138/66 96 Nasal 1.5L Cannula Intake & Output 09/11 1600 09/11 0400 09/10 1600 09/10 0400 09/09 1600 09/09 0400 Intake Total 110 445 600 0 Output Total 423 985 8917 600 Balance -190 -130 -925 -600 Intake, IV 10 20 Intake, Oral 100 425 600 0 Number 0 Bowel Movements Output, Urine 461 580 5040 600 Patient 200 lb 203 lb 210 lb Weight Weight Bed scale Bed scale Reported by Patient Measurement Method Physical Exam: NAD VS as above Lungs: decreased breath sounds at bases. CV: no rub Abd: non- tender Exts: no edema Neuro: A&O Current Medications: Current Medications Sig/Eron Start time Last Medication Dose Route Stop Time Status Admin Apixaban 5 MG BID 09/10 1000 AC 09/11 PO 0930 Aspirin Buffered 81 MG DAILY 09/10 1000 AC 09/11 PO 0930 Atorvastatin Calcium 20 MG 1700 09/10 1700 AC 09/10 PO 1708 Cinacalcet 60 MG 1700 09/10 1700 AC 09/10 PO 1707 Docusate Sodium 100 MG DAILY 09/10 1000 AC 09/11 PO 0930 Fish Oil 1,050 MG DAILY 09/10 999 AC 09/11 PO 0930 Furosemide 60 MG 7:30 AM, & 4:30 PM 09/10 0730 AC 09/11 IV 0929 Insulin Detemir 4 UNITS BID 09/10 1000 AC 09/11 SC 0938 Magnesium Oxide 400 MG DAILY 09/10 1000 AC 09/11 PO 0930 Metoprolol Tartrate 12.5 MG BID 09/10 1000 AC 09/11 PO 0930 Mycophenolate Mofetil 1,000 MG BID 09/10 1000 AC 09/11 PO 09 Trimethoprim/ 1 TAB 09/12 1000 AC Sulfamethoxazole PO Results Pertinent Lab Results: Laboratory Tests 09/11 09/10 0600 1500 Chemistry Sodium (137 - 145 mmol/L) 142 Potassium (3.5 - 5.1 mmol/L) 4.9 Chloride (98 - 107 mmol/L) 103 Carbon Dioxide (22 - 30 mmol/L) 25 Anion Gap (5 - 16) 14 BUN (9 - 20 mg/dL) 53 H Creatinine (0.7 - 1.2 mg/dL) 2.1 H Estimated GFR (>60 ml/min) 32 L BUN/Creatinine Ratio (7 - 25 %) 25.2 H Hematology CBC w Diff NO MAN DIFF REQ WBC (4.8 - 10.8 /CUMM) 9.4 RBC (4.70 - 6.10 /CUMM) 4.44 L Hgb (14.0 - 18.0 G/DL) 8.5 L Hct (42 - 52 %) 29.1 L MCV (80.0 - 94.0 FL) 65.5 L MCH (27.0 - 31.0 PG) 19.2 L MCHC (33.0 - 37.0 G/DL) 29.4 L RDW (11.5 - 14.5 %) 17.7 H Plt Count (130 - 400 /CUMM) 314 MPV (7.4 - 10.4 FL) 7.8 Gran % (42.2 - 75.2 %) 78.9 H Lymphocytes % (20.5 - 51.1 %) 6.0 L Monocytes % (1.7 - 9.3 %) 11.5 H Eosinophils % (0 - 5 %) 3.6 Basophils % (0.0 - 2.0 %) 0 Absolute Granulocytes (1.4 - 6.5 /CUMM) 7.4 H Absolute Lymphocytes (1.2 - 3.4 /CUMM) 0.6 L Absolute Monocytes (0.10 - 0.60 /CUMM) 1.1 H Absolute Eosinophils (0.0 - 0.7 /CUMM) 0.3 Absolute Basophils (0.0 - 0.2 /CUMM) 0 Urines Urine Color (YEL,AMB,STR) YEL Urine Clarity (CLEAR) CLEAR Urine pH (5.0 - 8.0) 6.0 Ur Specific [place] (1.001 - 1.035) 1.015 Urine Protein (NEG,<30 MG/DL) NEG Urine Ketones (NEG) NEG Urine Nitrite (NEG) NEG Urine Bilirubin (NEG) NEG Urine Urobilinogen (0.1 - 1.0 EU/dl) 0.2 Ur Leukocyte Esterase (NEG) NEG Ur Microscopic SEDIMENT EXAMINED Urine RBC (0 - 5 /HPF) 1-3 Urine WBC (0 - 2 /HPF) 1-3 H Ur Epithelial Cells (NONE,FEW) RARE Urine Hemoglobin (NEG) TRACE-INTACT H Urine Glucose (N MG/DL) NEG 09/10 09/10 09/10 0916 0645 0115 Chemistry Sodium (137 - 145 mmol/L) 140 Potassium (3.5 - 5.1 mmol/L) 5.0 Chloride (98 - 107 mmol/L) 104 Carbon Dioxide (22 - 30 mmol/L) 24 Anion Gap (5 - 16) 12 BUN (9 - 20 mg/dL) 47 H Creatinine (0.7 - 1.2 mg/dL) 2.0 H Estimated GFR (>60 ml/min) 34 L BUN/Creatinine Ratio (7 - 25 %) 23.5 Troponin I (<0.11 ng/ml) 0.03 0.04 Hematology CBC w Diff MAN DIFF ORDERED WBC (4.8 - 10.8 /CUMM) 10.7 RBC (4.70 - 6.10 /CUMM) 4.75 Hgb (14.0 - 18.0 G/DL) 9.2 L Hct (42 - 52 %) 31.0 L MCV (80.0 - 94.0 FL) 65.3 L MCH (27.0 - 31.0 PG) 19.5 L MCHC (33.0 - 37.0 G/DL) 29.8 L RDW (11.5 - 14.5 %) 18.0 H Plt Count (130 - 400 /CUMM) 341 MPV (7.4 - 10.4 FL) 7.8 Gran % (42.2 - 75.2 %) 83.5 H Lymphocytes % (20.5 - 51.1 %) 5.4 L Monocytes % (1.7 - 9.3 %) 8.9 Eosinophils % (0 - 5 %) 2.2 Basophils % (0.0 - 2.0 %) 0 Absolute Granulocytes (1.4 - 6.5 /CUMM) 9.0 H Absolute Lymphocytes (1.2 - 3.4 /CUMM) 0.6 L Absolute Monocytes (0.10 - 0.60 /CUMM) 1.0 H Absolute Eosinophils (0.0 - 0.7 /CUMM) 0.2 Absolute Basophils (0.0 - 0.2 /CUMM) 0 Platelet Estimate (ADEQUATE) ADEQUATE Polychromasia 1+ Hypochromic-Microcytic 2+ Poikilocytosis 3+ Anisocytosis 3+ Microcytic Cells 2+ Ovalocytes 2+ Elliptocytes 1+ Schistocytes 1+ 09/09 1701 Chemistry Sodium (137 - 145 mmol/L) 138 Potassium (3.5 - 5.1 mmol/L) 5.2 H Chloride (98 - 107 mmol/L) 105 Carbon Dioxide (22 - 30 mmol/L) 21 L Anion Gap (5 - 16) 13 BUN (9 - 20 mg/dL) 48 H Creatinine (0.7 - 1.2 mg/dL) 1.9 H Estimated GFR (>60 ml/min) 36 L BUN/Creatinine Ratio (7 - 25 %) 25.3 H Glucose (65 - 99 mg/dL) 161 H Calcium (8.4 - 10.2 mg/dL) 10.5 H Total Bilirubin (0.2 - 1.3 mg/dL) 0.3 AST (17 - 59 U/L) 14 L ALT (21 - 72 U/L) 24 Alkaline Phosphatase (< 127 U/L) 101 Troponin I (<0.11 ng/ml) 0.02 [id number] Pept (<125 pg/mL) 23495 H Total Protein (6.3 - 8.2 g/dL) 6.2 L Albumin (3.5 - 5.0 g/dL) 3.7 Globulin (1.9 - 4.2 gm/dL) 2.5 Albumin/Globulin Ratio (1.1 - 2.2 %) 1.5 Coagulation D-Dimer High Sensitivty (0 - 243 ng/ml) 251 H Hematology CBC w Diff NO MAN DIFF REQ WBC (4.8 - 10.8 /CUMM) 11.3 H RBC (4.70 - 6.10 /CUMM) 4.80 Hgb (14.0 - 18.0 G/DL) 9.3 L Hct (42 - 52 %) 31.0 L MCV (80.0 - 94.0 FL) 64.5 L MCH (27.0 - 31.0 PG) 19.4 L MCHC (33.0 - 37.0 G/DL) 30.0 L RDW (11.5 - 14.5 %) 17.6 H Plt Count (130 - 400 /CUMM) 336 MPV (7.4 - 10.4 FL) 7.7 Gran % (42.2 - 75.2 %) 86.4 H Lymphocytes % (20.5 - 51.1 %) 4.4 L Monocytes % (1.7 - 9.3 %) 6.9 Eosinophils % (0 - 5 %) 1.9 Basophils % (0.0 - 2.0 %) 0.4 Absolute Granulocytes (1.4 - 6.5 /CUMM) 9.8 H Absolute Lymphocytes (1.2 - 3.4 /CUMM) 0.5 L Absolute Monocytes (0.10 - 0.60 /CUMM) 0.8 H Absolute Eosinophils (0.0 - 0.7 /CUMM) 0.2 Absolute Basophils (0.0 - 0.2 /CUMM) 0
--- NOTE | 2017-09-11 14:27 | CT SCAN REPORT ---
EXAMINATION: CT CHEST WITHOUT CONTRAST CLINICAL INFORMATION: Worsening shortness of breath with exertion. Evaluate for pulmonary effusion. COMPARISON: CT chest 10/22/2016. Chest 09/09/2017. TECHNIQUE: Multidetector volumetric CT imaging of the chest was done. Axial MIP volume rendering provided. Sagittal and coronal reformatted images were obtained. DLP: 673.57 mGy-cm FINDINGS: [employer]: No additional findings. LUNGS: Diffuse hazy opacities and mosaic attenuation scattered throughout both lungs. There is engorgement of the pulmonary vasculature most compatible with pulmonary edema. Mild atelectasis of the dependent lungs bilaterally, right greater than left. MEDIASTINUM: Scattered small mediastinal bilateral hilar lymph nodes, likely reactive. No pathologically enlarged lymph nodes. Mild cardiomegaly. There are coronary vascular calcifications. PLEURA: Moderate right and small left pleural effusion. Pleural calcifications are seen in the right and left lung base, similar to prior examination. AXILLA: No lymphadenopathy. UPPER ABDOMEN: Small accessory splenule anterior to the spleen. The partially visualized upper abdomen is otherwise unremarkable. OSSEOUS STRUCTURES: Degenerative changes of the partially visualized spine. No acute osseous findings. IMPRESSION: Cardiomegaly with encouragement of the pulmonary vasculature and patchy airspace opacities bilaterally. This finding most likely represents sequela of CHF with prominent pulmonary edema. Superimposed infection would be difficult to exclude. Moderate right and small left pleural effusion. Stable chronic findings, as above.
[2017-09-11 14:30] VITALS: BP 120/56
--- NOTE | 2017-09-11 19:37 | PN- Cardiology ---
Subjective Subjective: Feels as though his breathing has improved. Diuresed ~2 L. Objective Vital Signs and I&Os Vital Signs Date Time Temp Pulse Resp B/P B/P Pulse O2 O2 Flow FiO2 Mean Ox Delivery Rate 09/11 1430 98.2 89 20 120/56 97 Nasal 1.0L Cannula 09/11 0930 63 136/64 09/11 0800 98 Nasal 1.5L Cannula 09/11 0653 98.0 63 18 14/64 98 Nasal Cannula 09/11 0018 75 95 09/11 0000 Nasal 1.5L Cannula 09/10 2202 98.0 90 18 120/60 96 Nasal 1.0L Cannula 09/10 2126 87 96 09/10 2109 90 120/60 Intake & Output 09/11 1600 09/11 0800 09/11 0000 09/10 1600 09/10 0800 09/10 0000 Intake Total 400 110 445 400 200 0 Output Total 600 257 102 6102 400 600 Balance -200 -190 -130 -725 -200 -600 Intake, IV 10 20 Intake, Oral 400 100 425 400 200 0 Number 0 0 Bowel Movements Output, Urine 600 547 345 6231 400 600 Patient 200 lb 203 lb 210 lb 212 lb Weight Weight Bed scale Bed scale Reported by Patient Reported by Patient Measurement Method Physical Exam: Well-developed, well-nourished elderly male in no acute distress with nasal oxygen in place. Vital signs: See above. Neck: No JVD, no bruits. Lungs: Decreased breath sounds at the bases. Heart: S1, S2. Grade 1-2/6 systolic murmur. Abdomen: Soft, nontender, positive bowel sounds. Extremities: No edema. Current Medications: Current Medications Sig/Eron Start time Last Medication Dose Route Stop Time Status Admin Albuterol Sulfate 3 ML Q4H PRN 09/11 1145 AC INH Apixaban 5 MG BID 09/10 1000 AC 09/11 PO 0930 Aspirin Buffered 81 MG DAILY 09/10 999 AC 09/11 PO 0930 Atorvastatin Calcium 20 MG 1700 09/10 1700 AC 09/11 PO 1733 Cinacalcet 60 MG 1700 09/10 1700 AC 09/11 PO 1733 Docusate Sodium 100 MG DAILY 09/10 1000 AC 09/11 PO 0930 Fish Oil 1,050 MG DAILY 09/10 999 AC 09/11 PO 0930 Furosemide 60 MG 7:30 AM, & 4:30 PM 09/10 0730 AC 09/11 IV 1625 Insulin Detemir 4 UNITS BID 09/10 1000 AC 09/11 SC 0938 Magnesium Oxide 400 MG DAILY 09/10 1000 AC 09/11 PO 09 Metoprolol Tartrate 12.5 MG BID 09/10 1000 AC 09/11 PO 09 Mycophenolate Mofetil 1,000 MG BID 09/10 1000 AC 09/11 PO 09 Trimethoprim/ 1 TAB 09/12 1000 AC Sulfamethoxazole PO Results Last 48 Hrs of Labs/Mics: Laboratory Tests 09/11/17 0600: Anion Gap 14, Estimated GFR 32 L, BUN/Creatinine Ratio 25.2 H, CBC w Diff NO MAN DIFF REQ, RBC 4.44 L, MCV 65.5 L, MCH 19.2 L, MCHC 29.4 L, RDW 17.7 H, MPV 7.8, Gran % 78.9 H, Lymphocytes % 6.0 L, Monocytes % 11.5 H, Eosinophils % 3.6, Basophils % 0, Absolute Granulocytes 7.4 H, Absolute Lymphocytes 0.6 L, Absolute Monocytes 1.1 H, Absolute Eosinophils 0.3, Absolute Basophils 0 09/10/17 1500: Urine Color YEL, Urine Clarity CLEAR, Urine pH 6.0, Ur Specific [place] 1.015, Urine Protein NEG, Urine Ketones NEG, Urine Nitrite NEG, Urine Bilirubin NEG, Urine Urobilinogen 0.2, Ur Leukocyte Esterase NEG, Ur Microscopic SEDIMENT EXAMINED, Urine RBC 1-3, Urine WBC 1-3 H, Ur Epithelial Cells RARE, Urine Hemoglobin TRACE-INTACT H, Urine Glucose NEG 09/10/17 0916: Troponin I 0.03 09/10/17 0645: Anion Gap 12, Estimated GFR 34 L, BUN/Creatinine Ratio 23.5, CBC w Diff MAN DIFF ORDERED, RBC 4.75, MCV 65.3 L, MCH 19.5 L, MCHC 29.8 L, RDW 18.0 H, MPV 7.8, Gran % 83.5 H, Lymphocytes % 5.4 L, Monocytes % 8.9, Eosinophils % 2.2, Basophils % 0, Absolute Granulocytes 9.0 H, Absolute Lymphocytes 0.6 L, Absolute Monocytes 1.0 H, Absolute Eosinophils 0.2, Absolute Basophils 0, Platelet Estimate ADEQUATE, Polychromasia 1+, Hypochromic-Microcytic 2+, Poikilocytosis 3+, Anisocytosis 3+, Microcytic Cells 2+, Ovalocytes 2+, Elliptocytes 1+, Schistocytes 1+ 09/10/17 0115: Troponin I 0.04 Recent Imaging Studies: Chest CT: Cardiomegaly with encouragement of the pulmonary vasculature and patchy airspace opacities bilaterally. This finding most likely represents sequela of CHF with prominent pulmonary edema. Superimposed infection would be difficult to exclude. Moderate right and small left pleural effusion. Stable chronic findings, as above. Assessment/Plan Assessment/Plan 66-[id number]-o-w-m w/ hx HTN, HLD, DM, restrictive/obstructive pulmonary disease, MARY, gout, prostate ca s/p resection, ESRD w/ previous PD & DDKT 04/2017 with peolonged hospitalization 2/2 complicated course (periplhnephric abscess, SBO, hypercapneic respiratory failure, delayed graft function, pulmonary embolism, pneumonia, etc.), chronic anemia, previously documented nonischemic cardiomyopathy that improved with standard therapy and more recent HFpEF who presented from home w/ a two-week history of progressive SOB, mild edema, orthopnea, PND, w/o associated CP, palpitations, significant wt gain, etc., & physical, radiographic, laboratory findings c/w possible HF, but also possible exacerbation of his pulmonary problems. Feels improved following a diuresis of ~2L, with a bump in his BUN/creatinine. Would repeat CXR in a.m. & diuresis further if this is c/w HF. Continue telemetry? Yes
[2017-09-11 20:31] VITALS: BP 134/66
[2017-09-12 07:08] VITALS: BP 124/62
--- NOTE | 2017-09-12 07:32 | PN- Housestaff ---
See Addendum Subjective Follow-up For: CHF exacerbation Recent renal transplant History of PE, HTN, HLD, DM, MARY, questionable diagnosis of COPD Tele-Events Since Last Visit: SR: 63-97, CA: 0.22 Subjective: Patient was seen and examined today. States his breathing has improved. Patient has been up and walking to and from the bathroom with decreased SOB on exertion. LE edema has improved per patient. Patient denies chest pain, palpitations, abdominal pain, n/v/c/d, fever/chills, dysuria/hematuria. Last BM was yesterday afternoon. Review of Systems Constitutional: Reports: no symptoms. Cardiovascular: Reports: see HPI, peripheral edema. Respiratory: Reports: see HPI, short of breath. Gastrointestinal: Reports: no symptoms. Genitourinary: Reports: no symptoms. Musculoskeletal: Reports: back pain. Skin: Reports: no symptoms. Objective Last 24 Hrs of Vital Signs/I&O Vital Signs Date Time Temp Pulse Resp B/P B/P Pulse O2 O2 Flow FiO2 Mean Ox Delivery Rate 09/12 0708 98.1 75 20 124/62 100 BIPAP 09/12 0019 67 97 09/12 0000 BIPAP 09/11 2120 81 97 09/11 2031 98.0 91 20 134/66 95 Nasal 0.5L Cannula 09/11 2028 91 134/66 09/11 1600 Nasal 0.5L Cannula 09/11 1430 98.2 89 20 120/56 97 Nasal 1.0L Cannula 09/11 0930 63 136/64 09/11 0800 98 Nasal 1.5L Cannula Intake & Output 09/12 0800 09/12 0000 09/11 1600 Intake Total 395 400 Output Total 800 600 Balance -405 -200 Intake, IV 20 Intake, Oral 375 400 Number 1 0 Bowel Movements Output, Urine 800 600 Patient 200 lb Weight Weight Bed scale Measurement Method Physical Exam General Appearance: Alert, Oriented X3, Cooperative, No Acute Distress HEENT: Atraumatic, PERRLA, EOMI, Mucous Membr. moist/pink Cardiovascular: Regular Rate, Normal S1, Normal S2, No Murmurs Lungs: decreased breath sounds at bases Abdomen: Normal Bowel Sounds, Soft, No Tenderness Extremities: No Clubbing, No Cyanosis, No Edema, Normal Pulses, No Tenderness/ Swelling Current Medications: Current Medications Sig/Eron Start time Last Medication Dose Route Stop Time Status Admin Albuterol Sulfate 3 ML Q4H PRN 09/11 1145 AC INH Apixaban 5 MG BID 09/10 1000 AC 09/11 PO 2022 Aspirin Buffered 81 MG DAILY 09/10 1000 AC 09/11 PO 929 Atorvastatin Calcium 20 MG 1700 09/10 1700 AC 09/11 PO 173 Cinacalcet 60 MG 1700 09/10 1700 AC 09/11 PO 173 Docusate Sodium 100 MG DAILY 09/10 1000 AC 09/11 PO 929 Fish Oil 1,050 MG DAILY 09/10 1000 AC 09/11 PO 929 Furosemide 60 MG 7:30 AM, & 4:30 PM 09/10 0730 AC 09/11 IV 1625 Insulin Detemir 4 UNITS BID 09/10 1000 AC 09/11 SC 2027 Magnesium Oxide 400 MG DAILY 09/10 1000 AC 09/11 PO 929 Metoprolol Tartrate 12.5 MG BID 09/10 1000 AC 09/11 PO 2027 Mycophenolate Mofetil 1,000 MG BID 09/10 1000 AC 09/11 PO 2023 Trimethoprim/ 1 TAB TUESDAY WED TUESDAY 09/12 1000 AC Sulfamethoxazole PO Last 24 Hrs of Lab/Elijah Results Last 24 Hrs of Labs/Mics: Laboratory Tests 09/12/17 0800: Anion Gap 13, Estimated GFR 27 L, BUN/Creatinine Ratio 24.2, Calcium 9.9, Phosphorus 4.2, Albumin 3.7, CBC w Diff NO MAN DIFF REQ, RBC 4.72, MCV 65.6 L, MCH 19.4 L, MCHC 29.5 L, RDW 18.3 H, MPV 8.1, Gran % 76.2 H, Lymphocytes % 7.2 L, Monocytes % 12.7 H, Eosinophils % 3.7, Basophils % 0.2, Absolute Granulocytes 7.7 H, Absolute Lymphocytes 0.7 L, Absolute Monocytes 1.3 H, Absolute Eosinophils 0.4, Absolute Basophils 0 Orders Radiology Findings: CXR: Cardiomegaly and vascular congestion. The interstitium is suboptimally evaluated due to the degree of hypoinflation. Interstitial edema appears improved/ decreased compared to 09/09/2017. Also, right pleural effusion appears decreased. Assessment/Plan Assessment: Patient is a 66-year-old male with a PMH significant for recent renal transplant with a complicated hospital course including PE and pneumonia, HTN, HLD, DM, MARY on CPAP, questionable diagnosis of COPD who presents with worsening dyspnea on exertion. Patient's chest x-ray was suggestive of pulmonary edema/CHF, along with elevated proBNP and signs of fluid overload including orthopnea, worsening dyspnea on exertion, crackles on exam pulmonary exam, dependent pitting edema of the lower extremities is likely a CHF exacerbation. The ED staff contacted the patient's nephrology group at [facility] who were on board with treating this likely CHF exacerbation with high-dose IV Lasix. Today patient's breathing has improved. Patient has been weaned off oxygen. Patient today received nebulized treatment from respiratory. His chest x-ray this morning showed improvement in pulmonary congestion. Patient's creatinine today was 2.4. Lasix was discontinued however patient received his first dose this morning at approximately 730 prior to lab results. Patient was seen by nephrology and will have an ultrasound of his recently transplanted right kidney. We will continue to monitor patient's renal function. Will avoid nephrotoxic agents. Problem list #CHF exacerbation #Recent renal transplant #History of PE, HTN, HLD, DM, MARY, questionable diagnosis of COPD Plan -Admitted to telemetry -Continue telemetry monitoring -Ruled out ACS with serial troponins and EKGs -Cardiology consulted. Dr. 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 -Echocardiogram pending -IV Lasix 60 mg twice a day - discontinued today as patients creatinine function has worsened today. -ultrasound of transplanted kidney -Nephrology consulted. Appreciate recommendations -Strict I's and O's and daily weights -Nocturnal CPAP -Continue home medications including Bactrim, CellCept, Sensipar, Eliquis, Lipitor, Lopressor, Levemir, aspirin, Plavix -Accu-Cheks 3 times a day before meals at bedtime, sliding insulin scale -Diabetic diet -Nebs were administered today (09/12) after speaking with respiratory therapist -DVT prophylaxis: CARLYN Le -CODE STATUS: Full code Problem List: 1. CHF exacerbation 2. End-stage renal disease on peritoneal dialysis Pain Ratin Pain Location: back Pain Goal: Remain pain free Pain Plan: patient declining pain meds Tomorrow's Labs & Rationales: bep - renal function cbc - anemia
--- NOTE | 2017-09-12 09:58 | PN- Cardiology ---
Subjective Subjective: Shortness of breath is somewhat better but not yet back to normal. No chest pain. No palpitations. No diaphoresis. No lightheadedness or dizziness. No nausea or vomiting Objective Vital Signs and I&Os Vital Signs Date Time Temp Pulse Resp B/P B/P Pulse O2 O2 Flow FiO2 Mean Ox Delivery Rate 09/12 816 75 124/62 09/12 0758 94 09/12 0708 98.1 75 20 124/62 100 BIPAP 09/12 0019 67 97 09/12 0000 BIPAP 09/11 2119 81 97 09/11 2030 98.0 91 20 134/66 95 Nasal 0.5L Cannula 09/11 2027 91 134/66 09/11 1600 Nasal 0.5L Cannula 09/11 1430 98.2 89 20 120/56 97 Nasal 1.0L Cannula Intake & Output 09/12 1600 09/12 0800 09/12 0000 09/11 1600 09/11 0800 09/11 0000 Intake Total 110 395 400 110 445 Output Total 0 800 600 300 575 Balance 110 -405 -200 -190 -130 Intake, IV 10 20 10 20 Intake, Oral 100 375 400 100 425 Number 1 0 0 Bowel Movements Output, Urine 0 800 600 300 575 Patient 200 lb 203 lb Weight Weight Bed scale Bed scale Measurement Method Physical Exam: Gen: NAD HEENT: normal Lungs: Bilateral rales, normal resp. effort Heart: RRR, S1, S2, 1/6 systolic murmur Abdomen: Soft, nontender, no masses Extremities: Trace edema Neuro: Alert and oriented x 3, cranial nerves intact Current Medications: Current Medications Sig/Eron Start time Last Medication Dose Route Stop Time Status Admin Albuterol Sulfate 3 ML Q4H PRN 09/11 1145 AC INH Apixaban 5 MG BID 09/10 1000 AC 09/12 PO 0820 Aspirin Buffered 81 MG DAILY 09/10 1000 AC 09/12 PO 0821 Atorvastatin Calcium 20 MG 1700 09/10 1700 AC 09/11 PO 1733 Cinacalcet 60 MG 1700 09/10 1700 AC 09/11 PO 1733 Docusate Sodium 100 MG DAILY 09/10 1000 AC 09/12 PO 0817 Fish Oil 1,050 MG DAILY 09/10 1000 AC 09/12 PO 0821 Furosemide 60 MG 7:30 AM, & 4:30 PM 09/10 0730 AC 09/12 IV 0821 Insulin Detemir 4 UNITS BID 09/10 1000 AC 09/12 SC 0822 Magnesium Oxide 400 MG DAILY 09/10 1000 AC 09/12 PO 0817 Metoprolol Tartrate 12.5 MG BID 09/10 1000 AC 09/12 PO 0817 Mycophenolate Mofetil 1,000 MG BID 09/10 1000 AC 09/12 PO 0820 Trimethoprim/ 1 TAB 09/12 1000 AC 09/12 Sulfamethoxazole PO 08 Results Last 48 Hrs of Labs/Mics: Laboratory Tests 09/12/17 0800: Sodium Pending, Potassium Pending, Chloride Pending, Carbon Dioxide Pending, Anion Gap Pending, BUN Pending, Creatinine Pending, BUN/Creatinine Ratio Pending , CBC w Diff Pending, WBC Pending, RBC Pending, Hgb Pending, Hct Pending, MCV Pending, MCH Pending, MCHC Pending, RDW Pending, Plt Count Pending, MPV Pending 09/11/17 0600: Anion Gap 14, Estimated GFR 32 L, BUN/Creatinine Ratio 25.2 H, CBC w Diff NO MAN DIFF REQ, RBC 4.44 L, MCV 65.5 L, MCH 19.2 L, MCHC 29.4 L, RDW 17.7 H, MPV 7.8, Gran % 78.9 H, Lymphocytes % 6.0 L, Monocytes % 11.5 H, Eosinophils % 3.6, Basophils % 0, Absolute Granulocytes 7.4 H, Absolute Lymphocytes 0.6 L, Absolute Monocytes 1.1 H, Absolute Eosinophils 0.3, Absolute Basophils 0 09/10/17 1500: Urine Color YEL, Urine Clarity CLEAR, Urine pH 6.0, Ur Specific [place] 1.015, Urine Protein NEG, Urine Ketones NEG, Urine Nitrite NEG, Urine Bilirubin NEG, Urine Urobilinogen 0.2, Ur Leukocyte Esterase NEG, Ur Microscopic SEDIMENT EXAMINED, Urine RBC 1-3, Urine WBC 1-3 H, Ur Epithelial Cells RARE, Urine Hemoglobin TRACE-INTACT H, Urine Glucose NEG Microbiology 09/10 1500 URINE ROUT: Urine Culture - COMP Recent Imaging Studies: CT scan of the chest 09/11/17: IMPRESSION: Cardiomegaly with encouragement of the pulmonary vasculature and patchy airspace opacities bilaterally. This finding most likely represents sequela of CHF with prominent pulmonary edema. Superimposed infection would be difficult to exclude. Moderate right and small left pleural effusion. Stable chronic findings, as above. Assessment/Plan Assessment/Plan Assessment: 1. Hypertension 2. Diabetes mellitus 3. Status post renal transplant 4. 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 Acute HFpEF, improving on diuretic therapy Plan: * Continue IV Lasix * Monitor input and output with daily weights * Check basic metabolic profile daily * Chest x-ray pending from this morning * Echocardiogram to reevaluate left ventricular ejection fraction * Continue other cardiac medication Continue telemetry? Yes
--- NOTE | 2017-09-12 10:06 | RADIOLOGY REPORT ---
EXAMINATION: XR CHEST CLINICAL INFORMATION: Congestive heart failure COMPARISON: 09/09/2017 TECHNIQUE: 2 views of the chest were obtained. FINDINGS: Lungs are hypoinflated, resulting in crowding of bronchovascular structures in lower lung zones. There is generalized prominence of interstitium; this appears improved compared to 09/09/2017. However, the interstitium is suboptimally evaluated due to the degree of hypoinflation. Discoid atelectasis within the lingula. Atelectasis in lower lobes is slightly improved compared to the prior exam. Cardiac silhouette is mildly enlarged. Atherosclerotic calcification of the aorta. Probable trace residual right pleural effusion. The visualized bones are intact. There is curvilinear calcification along the surface of the left diaphragm. The visualized upper abdomen is unremarkable. IMPRESSION: Cardiomegaly and vascular congestion. The interstitium is suboptimally evaluated due to the degree of hypoinflation. Interstitial edema appears improved/decreased compared to 09/09/2017. Also, right pleural effusion appears decreased.
[2017-09-12 10:13] LABS: ABSOLUTE BASOPHIL COUNT 0 /CUMM (0.0-0.2); ABSOLUTE EOSINOPHIL COUNT 0.4 /CUMM (0.0-0.7); ABSOLUTE GRANULOCYTE CT 7.7 /CUMM (1.4-6.5); ABSOLUTE LYMPH COUNT 0.7 /CUMM (1.2-3.4); ABSOLUTE MONOCYTE COUNT 1.3 /CUMM (0.10-0.60); BASOPHIL % 0.2 % (0.0-2.0); EOSINOPHIL % 3.7 % (0-5); GRANULOCYTE % 76.2 % (42.2-75.2); HEMATOCRIT 30.9 % (42-52); MEAN CORPUSCULAR HGB 19.4 PG (27.0-31.0); MEAN CORPUSCULAR HGB CONC 29.5 G/DL (33.0-37.0); MEAN PLATELET VOLUME 8.1 FL (7.4-10.4); PLATELET COUNT 322 /CUMM (130-400); RBC DISTRIBUTION WIDTH 18.3 % (11.5-14.5); RED BLOOD CELL CT 4.72 /CUMM (4.70-6.10); WHITE BLOOD CELL COUNT 10.1 /CUMM (4.8-10.8)
[2017-09-12 10:34] LABS: MEAN CORPUSCULAR VOLUME 65.6 FL (80.0-94.0)
--- NOTE | 2017-09-12 10:47 | PN- Nephrology ---
Assessment/Plan Assessment: 1. SEVERO: likely diuretic induced prerenal; acute rejection less likely based on u /a. Needs obstruction transplant excluded but doubt 2. ESRD: s/p DD transplant w baseline Cr mid 1s Suggestion: 1. stop diuretics 2. US transplant kidney 3. recheck labs in AM 4. If Cr rises apixaban dose will need to be lowered 2.5 mg bid Will need transfer to [facility] if renal function continues to worsen Subjective Subjective: Less SOB No cough No uremic sx Objective Vital Signs and I&Os Vital Signs Date Time Temp Pulse Resp B/P B/P Pulse O2 O2 Flow FiO2 Mean Ox Delivery Rate 09/12 0817 75 124/62 09/12 0758 94 09/12 0708 98.1 75 20 124/62 100 BIPAP 09/12 0019 67 97 09/12 0000 BIPAP 09/110 81 97 09/11 2030 98.0 91 20 134/66 95 Nasal 0.5L Cannula 09/11 2027 91 134/66 09/11 1600 Nasal 0.5L Cannula 09/11 1430 98.2 89 20 120/56 97 Nasal 1.0L Cannula Intake & Output 09/12 1600 09/12 0400 09/11 1600 09/11 0400 09/10 1600 09/10 0400 Intake Total 110 395 510 445 600 0 Output Total 0 800 208 618 7993 600 Balance 110 -405 -390 -130 -925 -600 Intake, IV 10 20 10 20 Intake, Oral 100 375 500 425 600 0 Number 1 0 0 Bowel Movements Output, Urine 0 800 887 606 8207 600 Patient 200 lb 203 lb 210 lb Weight Weight Bed scale Bed scale Reported by Patient Measurement Method Physical Exam General Appearance: no apparent distress, alert, awake Head: atraumatic, normal appearance Ears, Nose, Throat: normal ENT inspection Respiratory: no respiratory distress, quiet respiration, distant BS - no rales or wheezes Cardiovascular: regular rate/rhythm, no edema Abdomen: soft, non-tender, renal transplant RLQ nontender Extremities: no edema Neurologic/Psychiatric: no motor/sensory deficits, awake, alert Skin: intact, normal color Current Medications: Current Medications Sig/Eron Start time Last Medication Dose Route Stop Time Status Admin Albuterol Sulfate 3 ML Q4H PRN 09/11 1145 AC 09/12 INH 1025 Apixaban 5 MG BID 09/10 1000 AC 09/12 PO 0820 Aspirin Buffered 81 MG DAILY 09/10 1000 AC 09/12 PO 0821 Atorvastatin Calcium 20 MG 1700 09/10 1700 AC 09/11 PO 1733 Cinacalcet 60 MG 09/10 1700 AC 09/11 PO 173 Docusate Sodium 100 MG DAILY 09/10 1000 AC 09/12 PO 0817 Fish Oil 1,050 MG DAILY 09/10 1000 AC 09/12 PO 0821 Furosemide 60 MG 7:30 AM, & 4:30 PM 09/10 0730 AC 09/12 IV 0821 Insulin Detemir 4 UNITS BID 09/10 1000 AC 09/12 SC 0822 Magnesium Oxide 400 MG DAILY 09/10 1000 AC 09/12 PO 0817 Metoprolol Tartrate 12.5 MG BID 09/10 1000 AC 09/12 PO 0817 Mycophenolate Mofetil 1,000 MG BID 09/10 1000 AC 09/12 PO 0820 Trimethoprim/ 1 TAB 09/12 1000 AC 09/12 Sulfamethoxazole PO 08 Results Pertinent Lab Results: Laboratory Tests 09/12 09/11 0800 0600 Chemistry Sodium (137 - 145 mmol/L) 145 142 Potassium (3.5 - 5.1 mmol/L) 4.4 4.9 Chloride (98 - 107 mmol/L) 101 103 Carbon Dioxide (22 - 30 mmol/L) 30 25 Anion Gap (5 - 16) 13 14 BUN (9 - 20 mg/dL) 58 H 53 H Creatinine (0.7 - 1.2 mg/dL) 2.4 H 2.1 H Estimated GFR (>60 ml/min) 27 L 32 L BUN/Creatinine Ratio (7 - 25 %) 24.2 25.2 H Hematology CBC w Diff NO MAN DIFF REQ NO MAN DIFF REQ WBC (4.8 - 10.8 /CUMM) 10.1 9.4 RBC (4.70 - 6.10 /CUMM) 4.72 4.44 L Hgb (14.0 - 18.0 G/DL) 9.1 L 8.5 L Hct (42 - 52 %) 30.9 L 29.1 L MCV (80.0 - 94.0 FL) 65.6 L 65.5 L MCH (27.0 - 31.0 PG) 19.4 L 19.2 L MCHC (33.0 - 37.0 G/DL) 29.5 L 29.4 L RDW (11.5 - 14.5 %) 18.3 H 17.7 H Plt Count (130 - 400 /CUMM) 322 314 MPV (7.4 - 10.4 FL) 8.1 7.8 Gran % (42.2 - 75.2 %) 76.2 H 78.9 H Lymphocytes % (20.5 - 51.1 %) 7.2 L 6.0 L Monocytes % (1.7 - 9.3 %) 12.7 H 11.5 H Eosinophils % (0 - 5 %) 3.7 3.6 Basophils % (0.0 - 2.0 %) 0.2 0 Absolute Granulocytes (1.4 - 6.5 /CUMM) 7.7 H 7.4 H Absolute Lymphocytes (1.2 - 3.4 /CUMM) 0.7 L 0.6 L Absolute Monocytes (0.10 - 0.60 /CUMM) 1.3 H 1.1 H Absolute Eosinophils (0.0 - 0.7 /CUMM) 0.4 0.3 Absolute Basophils (0.0 - 0.2 /CUMM) 0 0 09/10 09/10 1500 0916 Chemistry Troponin I (<0.11 ng/ml) 0.03 Urines Urine Color (YEL,AMB,STR) YEL Urine Clarity (CLEAR) CLEAR Urine pH (5.0 - 8.0) 6.0 Ur Specific [place] (1.001 - 1.035) 1.015 Urine Protein (NEG,<30 MG/DL) NEG Urine Ketones (NEG) NEG Urine Nitrite (NEG) NEG Urine Bilirubin (NEG) NEG Urine Urobilinogen (0.1 - 1.0 EU/dl) 0.2 Ur Leukocyte Esterase (NEG) NEG Ur Microscopic SEDIMENT EXAMINED Urine RBC (0 - 5 /HPF) 1-3 Urine WBC (0 - 2 /HPF) 1-3 H Ur Epithelial Cells (NONE,FEW) RARE Urine Hemoglobin (NEG) TRACE-INTACT H Urine Glucose (N MG/DL) NEG 09/10 09/10 0645 0115 Chemistry Sodium (137 - 145 mmol/L) 140 Potassium (3.5 - 5.1 mmol/L) 5.0 Chloride (98 - 107 mmol/L) 104 Carbon Dioxide (22 - 30 mmol/L) 24 Anion Gap (5 - 16) 12 BUN (9 - 20 mg/dL) 47 H Creatinine (0.7 - 1.2 mg/dL) 2.0 H Estimated GFR (>60 ml/min) 34 L BUN/Creatinine Ratio (7 - 25 %) 23.5 Troponin I (<0.11 ng/ml) 0.04 Hematology CBC w Diff MAN DIFF ORDERED WBC (4.8 - 10.8 /CUMM) 10.7 RBC (4.70 - 6.10 /CUMM) 4.75 Hgb (14.0 - 18.0 G/DL) 9.2 L Hct (42 - 52 %) 31.0 L MCV (80.0 - 94.0 FL) 65.3 L MCH (27.0 - 31.0 PG) 19.5 L MCHC (33.0 - 37.0 G/DL) 29.8 L RDW (11.5 - 14.5 %) 18.0 H Plt Count (130 - 400 /CUMM) 341 MPV (7.4 - 10.4 FL) 7.8 Gran % (42.2 - 75.2 %) 83.5 H Lymphocytes % (20.5 - 51.1 %) 5.4 L Monocytes % (1.7 - 9.3 %) 8.9 Eosinophils % (0 - 5 %) 2.2 Basophils % (0.0 - 2.0 %) 0 Absolute Granulocytes (1.4 - 6.5 /CUMM) 9.0 H Absolute Lymphocytes (1.2 - 3.4 /CUMM) 0.6 L Absolute Monocytes (0.10 - 0.60 /CUMM) 1.0 H Absolute Eosinophils (0.0 - 0.7 /CUMM) 0.2 Absolute Basophils (0.0 - 0.2 /CUMM) 0 Platelet Estimate (ADEQUATE) ADEQUATE Polychromasia 1+ Hypochromic-Microcytic 2+ Poikilocytosis 3+ Anisocytosis 3+ Microcytic Cells 2+ Ovalocytes 2+ Elliptocytes 1+ Schistocytes 1+ 09/09 1701 Chemistry Sodium (137 - 145 mmol/L) 138 Potassium (3.5 - 5.1 mmol/L) 5.2 H Chloride (98 - 107 mmol/L) 105 Carbon Dioxide (22 - 30 mmol/L) 21 L Anion Gap (5 - 16) 13 BUN (9 - 20 mg/dL) 48 H Creatinine (0.7 - 1.2 mg/dL) 1.9 H Estimated GFR (>60 ml/min) 36 L BUN/Creatinine Ratio (7 - 25 %) 25.3 H Glucose (65 - 99 mg/dL) 161 H Calcium (8.4 - 10.2 mg/dL) 10.5 H Total Bilirubin (0.2 - 1.3 mg/dL) 0.3 AST (17 - 59 U/L) 14 L ALT (21 - 72 U/L) 24 Alkaline Phosphatase (< 127 U/L) 101 Troponin I (<0.11 ng/ml) 0.02 Qrt-[id number] Pept (<125 pg/mL) 94009 H Total Protein (6.3 - 8.2 g/dL) 6.2 L Albumin (3.5 - 5.0 g/dL) 3.7 Globulin (1.9 - 4.2 gm/dL) 2.5 Albumin/Globulin Ratio (1.1 - 2.2 %) 1.5 Coagulation D-Dimer High Sensitivty (0 - 243 ng/ml) 251 H Hematology CBC w Diff NO MAN DIFF REQ WBC (4.8 - 10.8 /CUMM) 11.3 H RBC (4.70 - 6.10 /CUMM) 4.80 Hgb (14.0 - 18.0 G/DL) 9.3 L Hct (42 - 52 %) 31.0 L MCV (80.0 - 94.0 FL) 64.5 L MCH (27.0 - 31.0 PG) 19.4 L MCHC (33.0 - 37.0 G/DL) 30.0 L RDW (11.5 - 14.5 %) 17.6 H Plt Count (130 - 400 /CUMM) 336 MPV (7.4 - 10.4 FL) 7.7 Gran % (42.2 - 75.2 %) 86.4 H Lymphocytes % (20.5 - 51.1 %) 4.4 L Monocytes % (1.7 - 9.3 %) 6.9 Eosinophils % (0 - 5 %) 1.9 Basophils % (0.0 - 2.0 %) 0.4 Absolute Granulocytes (1.4 - 6.5 /CUMM) 9.8 H Absolute Lymphocytes (1.2 - 3.4 /CUMM) 0.5 L Absolute Monocytes (0.10 - 0.60 /CUMM) 0.8 H Absolute Eosinophils (0.0 - 0.7 /CUMM) 0.2 Absolute Basophils (0.0 - 0.2 /CUMM) 0 Imaging/Other Studies: SERVICE DATE: 09/12/17-06 EXAM TYPE: RAD - XRY-CHEST XRAY, TWO VIEWS EXAMINATION: XR CHEST CLINICAL INFORMATION: Congestive heart failure COMPARISON: 09/09/2017 TECHNIQUE: 2 views of the chest were obtained. FINDINGS: Lungs are hypoinflated, resulting in crowding of bronchovascular structures in lower lung zones. There is generalized prominence of interstitium; this appears improved compared to 09/09/2017. However, the interstitium is suboptimally evaluated due to the degree of hypoinflation. Discoid atelectasis within the lingula. Atelectasis in lower lobes is slightly improved compared to the prior exam. Cardiac silhouette is mildly enlarged. Atherosclerotic calcification of the aorta. Probable trace residual right pleural effusion. The visualized bones are intact. There is curvilinear calcification along the surface of the left diaphragm. The visualized upper abdomen is unremarkable. IMPRESSION: Cardiomegaly and vascular congestion. The interstitium is suboptimally evaluated due to the degree of hypoinflation. Interstitial edema appears improved/decreased compared to 09/09/2017. Also, right pleural effusion appears decreased.
--- NOTE | 2017-09-12 15:54 | ULTRASOUND REPORT ---
EXAMINATION: US RENAL TRANSPLANT CLINICAL INFORMATION: Acute kidney insufficiency. Evaluate for hydronephrosis. COMPARISON: None TECHNIQUE: Doppler, color and fleming-scale evaluation of the transplant kidney in the right lower quadrant. FINDINGS: The transplant kidney in the right lower quadrant measures 13.5 x 8.2 x 7.2 cm in dimension. There is renal cortical thickening and loss of corticomedullary differentiation. No renal stone, mass or hydronephrosis is seen. No fluid collection around the kidney is seen. Doppler evaluation demonstrates increased peak systolic velocities in the renal artery questionable for kink or stenosis. Peak systolic velocity measures 312-313 cm/s. Renal artery peak systolic velocity is normal in the hilum of the kidney measuring 122 cm/s. Resistive indices in the transplant kidney are elevated ranging from 0.7-0.9. The right iliac artery is patent with normal peak systolic velocity of 101 cm/s. The right renal vein is patent. The bladder is not optimally distended but appears unremarkable. A right ureteral jet is seen. IMPRESSION: No hydronephrosis. Renal cortical thickening and loss of renal corticomedullary differentiation. Elevated peak systolic velocities in the right renal artery questionable for kink or stenosis. Elevated resistive indices in the right kidney.
[2017-09-12 22:18] VITALS: BP 132/60
[2017-09-13 06:45] VITALS: BP 130/60
--- NOTE | 2017-09-13 07:25 | PN- Housestaff ---
See Addendum Subjective Follow-up For: CHF exacerbation SEVERO Recent renal transplant History of PE, HTN, HLD, DM, MARY, questionable diagnosis of COPD Tele-Events Since Last Visit: NSR: 72-96, 1st degree AV block Subjective: Patient was seen and examined today. Patient states his breathing has improved. States his lower leg swelling has decreased. Denies any chest pain, palpitations , dizziness, lightheadedness, abdominal pain, n/v/c/d, hematuria/dysuria. No acute events overnight. Review of Systems Constitutional: Reports: no symptoms. EENTM: Reports: no symptoms. Cardiovascular: Reports: no symptoms. Respiratory: Reports: see HPI. Gastrointestinal: Reports: no symptoms. Genitourinary: Reports: no symptoms. Musculoskeletal: Reports: back pain (chronic). Neurological/Psychological: Reports: no symptoms. Hematologic/Endocrine: Reports: bruising (on anticoagulation). Objective Last 24 Hrs of Vital Signs/I&O Vital Signs Date Time Temp Pulse Resp B/P B/P Pulse O2 O2 Flow FiO2 Mean Ox Delivery Rate 09/13 0645 97.8 91 20 130/60 92 Room Air 09/13 0000 94 BIPAP 09/12 2357 78 98 09/12 2218 98.2 98 18 132/60 89 Room Air 09/12 2133 102 95 09/12 2119 97 132/60 09/12 1048 93 Room Air 09/12 0817 75 124/62 09/12 0800 Nasal 0.5L Cannula 09/12 0758 94 Intake & Output 09/13 0800 09/13 0000 09/12 1600 Intake Total 200 200 400 Output Total 675 575 Balance -475 200 -175 Intake, Oral 200 200 400 Output, Urine 675 575 Physical Exam General Appearance: Alert, Oriented X3, Cooperative, No Acute Distress HEENT: Atraumatic, PERRLA, EOMI, Mucous Membr. moist/pink Cardiovascular: Regular Rate, Normal S1, Normal S2, No Murmurs Lungs: minimal crackles at lung base Abdomen: Normal Bowel Sounds, Soft, No Tenderness, No Hepatospenomegaly, No Masses Neurological: Normal Speech Extremities: No Clubbing, No Cyanosis, No Edema, Normal Pulses, No Tenderness/ Swelling Vascular: Normal Pulses, Pulses Symmetrical Current Medications: Current Medications Sig/Eron Start time Last Medication Dose Route Stop Time Status Admin Albuterol Sulfate 3 ML Q4H PRN 09/11 1145 AC 09/12 INH 1025 Apixaban 5 MG BID 09/10 1000 AC 09/12 PO 2118 Aspirin Buffered 81 MG DAILY 09/10 1000 AC 09/12 PO 08 Atorvastatin Calcium 20 MG 0 09/10 1700 AC 09/12 PO 171 Cinacalcet 60 MG 1700 09/10 1700 AC 09/12 PO 171 Docusate Sodium 100 MG DAILY 09/10 1000 AC 09/12 PO 08 Fish Oil 1,050 MG DAILY 09/10 1000 AC 09/12 PO 08 Furosemide 60 MG 7:30 AM, & 4:30 PM 09/10 0730 DC 09/12 IV 0821 Insulin Detemir 4 UNITS BID 09/10 1000 AC 09/12 SC 212 Magnesium Oxide 400 MG DAILY 09/10 1000 AC 09/12 PO 816 Metoprolol Tartrate 12.5 MG BID 09/10 1000 AC 09/12 PO 2118 Mycophenolate Mofetil 1,000 MG BID 09/10 1000 AC 09/12 PO 2118 Trimethoprim/ 1 TAB 09/12 1000 AC 09/12 Sulfamethoxazole PO 821 Last 24 Hrs of Lab/Elijah Results Last 24 Hrs of Labs/Mics: Laboratory Tests 09/13/17 0644: CBC w Diff NO MAN DIFF REQ, RBC 4.37 L, MCV 65.1 L, MCH 19.4 L, MCHC 29.8 L, RDW 18.3 H, MPV 8.0, Gran % 82.4 H, Lymphocytes % 4.4 L, Monocytes % 11.1 H, Eosinophils % 2.1, Basophils % 0, Absolute Granulocytes 8.6 H, Absolute Lymphocytes 0.5 L, Absolute Monocytes 1.2 H, Absolute Eosinophils 0.2, Absolute Basophils 0 09/13/17 0625: Anion Gap 11, Estimated GFR 23 L, BUN/Creatinine Ratio 22.1 Assessment/Plan Assessment: Patient is a 66-year-old male with a PMH significant for recent renal transplant with a complicated hospital course including PE and pneumonia, HTN, HLD, DM, MARY on CPAP, questionable diagnosis of COPD who presents with worsening dyspnea on exertion. Patient's chest x-ray was suggestive of pulmonary edema/CHF, along with elevated proBNP and signs of fluid overload including orthopnea, worsening dyspnea on exertion, crackles on exam pulmonary exam, dependent pitting edema of the lower extremities is likely a CHF exacerbation. The ED staff contacted the patient's nephrology group at [facility] who were on board with treating this likely CHF exacerbation with high-dose IV Lasix. Today patient's breathing appears to have improved however he has not ambulated much aside from going to and from the restroom. Patient was weaned off oxygen the day prior and is currently saturating in the low to mid 90s on room air. Patient's creatinine today was 2.8. Lasix and bactrim have been held. Patient's renal ultrasound showed no hydronephrosis however did show renal cortical thickening and loss of renal cortical medullary differentiation. Also noted was elevated peak systolic velocities in the right renal artery which may be evidence of kinking or stenosis. This however should be compared to his previous ultrasounds which were done at [facility]. Patient was seen by nephrology and would benefit from being transferred to [facility]. Problem list #SEVERO on CKD #CHF exacerbation #Recent renal transplant #History of PE, HTN, HLD, DM, MARY, questionable diagnosis of COPD Plan -Admitted to telemetry -Continue telemetry monitoring -Ruled out ACS with serial troponins and EKGs -Cardiology consulted. Dr. Marcano is patient's sales and service technician and is aware. -Echocardiogram pending -IV lasix discontinued yesterday. Creatinine function today has increased substanitally. Will be transferred to [facility] today. -Nephrology consulted. Appreciate recommendations -Strict I's and O's and daily weights -Nocturnal CPAP -Continue home medications including CellCept, Sensipar, Eliquis, Lipitor, Lopressor, Levemir, aspirin, Plavix -Use of bactrim should be evaluated by his renal transplant team upon transfer. Patient did not receive a dose today as his normal schedule is M, W and F. -Accu-Cheks 3 times a day before meals at bedtime, sliding insulin scale -Diabetic diet -Nebs were administered yesterday (09/12) after speaking with respiratory therapist -DVT prophylaxis: CARLYN Le -CODE STATUS: Full code Problem List: 1. CHF exacerbation 2. SEVERO (acute kidney injury) Pain Ratin Pain Location: back Pain Goal: Pain 4 or less Pain Plan: patient declining pain meds Tomorrow's Labs & Rationales: none - transfer to [facility]
[2017-09-13 08:29] LABS: ABSOLUTE BASOPHIL COUNT 0 /CUMM (0.0-0.2); ABSOLUTE EOSINOPHIL COUNT 0.2 /CUMM (0.0-0.7); ABSOLUTE GRANULOCYTE CT 8.6 /CUMM (1.4-6.5); ABSOLUTE LYMPH COUNT 0.5 /CUMM (1.2-3.4); ABSOLUTE MONOCYTE COUNT 1.2 /CUMM (0.10-0.60); BASOPHIL % 0 % (0.0-2.0); EOSINOPHIL % 2.1 % (0-5); GRANULOCYTE % 82.4 % (42.2-75.2); HEMATOCRIT 28.5 % (42-52); MEAN CORPUSCULAR HGB 19.4 PG (27.0-31.0); MEAN CORPUSCULAR HGB CONC 29.8 G/DL (33.0-37.0); MEAN CORPUSCULAR VOLUME 65.1 FL (80.0-94.0); PLATELET COUNT 296 /CUMM (130-400); RBC DISTRIBUTION WIDTH 18.3 % (11.5-14.5); RED BLOOD CELL CT 4.37 /CUMM (4.70-6.10); WHITE BLOOD CELL COUNT 10.4 /CUMM (4.8-10.8)
[2017-09-13 09:11] VITALS: BP 130/60
--- NOTE | 2017-09-13 09:29 | Patient Discharge Instructions ---
Discharge Instructions General Discharge Information You were seen/treated for: Shortness of breath Congestive Heart Failure SEVERO Special Instructions: -Your being transferred to another hospital for further management of your increasing creatinine. -Please follow-up with your it project lead 7 days after discharge -Please follow-up with your tube fitter 7 days after discharge -Please follow-up with your primary care provider within 7 days after discharge. -We have made changes to your home medications, please read the instructions carefully. -Please come back to the hospital if your symptoms got worse. Diet Recommended Diet: Diabetic, Heart Healthy Activity Full Activity/No Limits: Yes (as tolerated) Acute Coronary Syndrome Inclusion Criteria At DC or during hospital stay patient has or had the following: ACS DIAGNOSIS No Discharge Core Measures Meds if any: Prescribed or Continued at Discharge Meds if any: NOT Prescribed or Continued at Discharge Congestive Heart Failure Inclusion Criteria At DC or during hospital stay patient has or had the following: CHF DIAGNOSIS Yes Discharge Core Measures Meds if any: Prescribed or Continued at Discharge Meds if any: NOT Prescribed or Continued at Discharge Cerebrovascular accident Inclusion Criteria At DC or during hospital stay patient has or had the following: CVA/TIA Diagnosis No Discharge Core Measures Meds if any: Prescribed or Continued at Discharge Meds if any: NOT Prescribed or Continued at Discharge Venous thromboembolism Inclusion Criteria VTE Diagnosis No VTE Type NONE VTE Confirmed by (Test) NONE Discharge Core Measures - Per Current guidelines, there needs to be overlap - treatment for the first 5 days of Warfarin therapy. - If discharged on Warfarin prior to 5 days of - overlap therapy, the patient will need to be - assessed for post discharge needs including - *Post discharge parental anticoagulation - *Warfarin and/or parental anticoagulation education - *Follow up date to check INR post discharge At least 5 days overlap therapy as Inpatient No Meds if any: Prescribed or Continued at Discharge Note: Overlap Therapy is Warfarin and Anticoagulant Meds if any: NOT Prescribed or Continued at Discharge
--- NOTE | 2017-09-13 10:00 | Discharge Summary ---
Visit Information Visit Dates Admission Date: 09/09/17 Discharge Date: 09/13/2017 Hospital Course Course Attending Physician: Malick Hernandez MD Primary Care Physician: Jigna Gillespie MD Other Care Providers: MD Solo Mcelroy MD Consulting Request: Consulting Physician: MD Bradley Vela MD Reason for Consult: Nephrology/General Care Hospital Course: 66 yo M with h/o HTN, COPD, MARY on CPAP, restrictive lung disease, chronic diastolic heart failure, recent renal transplant (Apr 2017) at [facility] for which patient is on eliquis came for exertional dyspnea (with minimal exertion) for the past 1 week. This has been ongoing since he was discharged home from rehab 1 month ago. While he works with PT, he tends to get hypoxic and tachycardic. C/o orthopnea and worsening LE swelling. Patient is on Cellcept and Bactrim post transplant. He also receives IV infusion of Belatacept once every 4 weeks. Vitals stable. Exam: AAO, in moderate distress, able to speak in short sentences, Neck supple, Chest bibasilar crackles+, Heart S1S2 regular, systolic murmur+, LE: b/l 2+ pitting edema. Labs: WBC 11.3, H/H 9.3/31, microcytic anemia, Plt 336,K 5.2, bicarb 21, BUN 48, creat 1.9, glucose 161, Ca 10.5, trop 0.02, proBNP 15392. Rapid flu negative. CXR: pulmonary edema. Echo (2015): EF 45-50%, LVH, mild left atrial enlargement. EKG: sinus tachycardia with PVC's, nonspecific IVCD. He was admitted to telemetry floor and treated for these medical conditions CHF exacerbation Fluid overload, pulmonary edema acute exacerbation of chronic congestive heart failure ACS ruled out. Patient initially was put on IV Lasix 60 mg twice a day with good diuresis however patient's creatinine increased from baseline 2 to 2.8 and so Lasix stopped. Patient will be transferred to [facility] renal transplant unit for further management per nephrology recommendation. renal transplant/immunocompromised on Cellcept and Bactrim prophylaxis Patient is on Bactrim and CellCept. renal Ultrasound showed No hydronephrosis. Renal cortical thickening and loss of renal corticomedullary differentiation. Elevated peak systolic velocities in the right renal artery questionable for kink or stenosis. Elevated resistive indices in the right kidney. hxof PE rj was decerased in dosage due to incerased cr level per nephro rec. Allergies: Coded Allergies: tetrahydrozoline (BELIEVES HE HAD A COUGH, UNSURE 10/10/15) Pertinent Lab Results: PATIENT: DENIA ROSARIO PRESENT AGE: 66 PATIENT ACCOUNT NO: [id number] : 51 LOCATION: ER ORDERING PHYSICIAN: Ezra VIDAL SERVICE DATE: 09/09/17 EXAM TYPE: RAD - XRY-CHEST XRAY, TWO VIEWS EXAMINATION: XR CHEST CLINICAL INFORMATION: Shortness of breath cough COMPARISON: Prior chest September 2016. CT chest September 2016. TECHNIQUE: 2 views of the chest were obtained. FINDINGS: Lung volumes are decreased. There are small bilateral pleural effusions. There is increased interstitial markings bilaterally. The cardiac silhouette and pulmonary vascularity are normal. Calcification of the dorsal aorta. IMPRESSION: Findings suggestive of pulmonary edema and/or CHF. DICTATED BY: Malick Galdamez MD DATE/TIME DICTATED:09/09/171922 BINDER FIXER:CAMERON DATE/TIME TRANSCRIBED:09/09/171922 CONFIDENTIAL, DO NOT COPY WITHOUT APPROPRIATE AUTHORIZATION. <Electronically signed in Other Vendor System> SIGNED BY: Malick Galdamez MD 09/09 ========= PATIENT: DENIA ROSARIO PRESENT AGE: 66 PATIENT ACCOUNT NO: [id number] : 51 LOCATION: [facility] ORDERING PHYSICIAN: Jose G Chicas MD SERVICE DATE: 09/11/17- EXAM TYPE: CAT - CT CHEST WO IV CONTRAST EXAMINATION: CT CHEST WITHOUT CONTRAST CLINICAL INFORMATION: Worsening shortness of breath with exertion. Evaluate for pulmonary effusion. COMPARISON: CT chest 10/22/2016. Chest 09/09/2017. TECHNIQUE: Multidetector volumetric CT imaging of the chest was done. Axial MIP volume rendering provided. Sagittal and coronal reformatted images were obtained. DLP: 673.57 mGy-cm FINDINGS: CEO NA: No additional findings. LUNGS: Diffuse hazy opacities and mosaic attenuation scattered throughout both lungs. There is engorgement of the pulmonary vasculature most compatible with pulmonary edema. Mild atelectasis of the dependent lungs bilaterally, right greater than left. MEDIASTINUM: Scattered small mediastinal bilateral hilar lymph nodes, likely reactive. No pathologically enlarged lymph nodes. Mild cardiomegaly. There are coronary vascular calcifications. PLEURA: Moderate right and small left pleural effusion. Pleural calcifications are seen in the right and left lung base, similar to prior examination. AXILLA: No lymphadenopathy. UPPER ABDOMEN: Small accessory splenule anterior to the spleen. The partially visualized upper abdomen is otherwise unremarkable. OSSEOUS STRUCTURES: Degenerative changes of the partially visualized spine. No acute osseous findings. IMPRESSION: Cardiomegaly with encouragement of the pulmonary vasculature and patchy airspace opacities bilaterally. This finding most likely represents sequela of CHF with prominent pulmonary edema. Superimposed infection would be difficult to exclude. Moderate right and small left pleural effusion. Stable chronic findings, as above. DICTATED BY: Chris Baker MD DATE/TIME DICTATED:09/11/171416 BINDER FIXER:CAMERON DATE/TIME TRANSCRIBED:09/11/171416 CONFIDENTIAL, DO NOT COPY WITHOUT APPROPRIATE AUTHORIZATION. <Electronically signed in Other Vendor System> SIGNED BY: Chris Baker MD 09/11/17 142 ========= PATIENT: DENIA ROSARIO PRESENT AGE: 66 PATIENT ACCOUNT NO: [id number] : 51 LOCATION: [facility] ORDERING PHYSICIAN: Solo Reilly MD SERVICE DATE: 09/12/17- EXAM TYPE: US - US-RENAL/KIDNEY EXAMINATION: US RENAL TRANSPLANT CLINICAL INFORMATION: Acute kidney insufficiency. Evaluate for hydronephrosis. COMPARISON: None TECHNIQUE: Doppler, color and fleming-scale evaluation of the transplant kidney in the right lower quadrant. FINDINGS: The transplant kidney in the right lower quadrant measures 13.5 x 8.2 x 7.2 cm in dimension. There is renal cortical thickening and loss of corticomedullary differentiation. No renal stone, mass or hydronephrosis is seen. No fluid collection around the kidney is seen. Doppler evaluation demonstrates increased peak systolic velocities in the renal artery questionable for kink or stenosis. Peak systolic velocity measures 312-313 cm/s. Renal artery peak systolic velocity is normal in the hilum of the kidney measuring 122 cm/s. Resistive indices in the transplant kidney are elevated ranging from 0.7-0.9. The right iliac artery is patent with normal peak systolic velocity of 101 cm/s. The right renal vein is patent. The bladder is not optimally distended but appears unremarkable. A right ureteral jet is seen. IMPRESSION: No hydronephrosis. Renal cortical thickening and loss of renal corticomedullary differentiation. Elevated peak systolic velocities in the right renal artery questionable for kink or stenosis. Elevated resistive indices in the right kidney. DICTATED BY: Kylah Gunn MD DATE/TIME DICTATED:09/12/171508 BINDER FIXER:CAMERON DATE/TIME TRANSCRIBED:09/12/171508 CONFIDENTIAL, DO NOT COPY WITHOUT APPROPRIATE AUTHORIZATION. <Electronically signed in Other Vendor System> SIGNED BY: Kylah Gunn MD 1554 ======= PATIENT: DENIA ROSARIO PRESENT AGE: 66 PATIENT ACCOUNT NO: [id number] : 51 LOCATION: [facility] ORDERING PHYSICIAN: Duy Quintero MD SERVICE DATE: 09/12/17 EXAM TYPE: RAD - XRY-CHEST XRAY, TWO VIEWS EXAMINATION: XR CHEST CLINICAL INFORMATION: Congestive heart failure COMPARISON: 09/09/2017 TECHNIQUE: 2 views of the chest were obtained. FINDINGS: Lungs are hypoinflated, resulting in crowding of bronchovascular structures in lower lung zones. There is generalized prominence of interstitium; this appears improved compared to 09/09/2017. However, the interstitium is suboptimally evaluated due to the degree of hypoinflation. Discoid atelectasis within the lingula. Atelectasis in lower lobes is slightly improved compared to the prior exam. Cardiac silhouette is mildly enlarged. Atherosclerotic calcification of the aorta. Probable trace residual right pleural effusion. The visualized bones are intact. There is curvilinear calcification along the surface of the left diaphragm. The visualized upper abdomen is unremarkable. IMPRESSION: Cardiomegaly and vascular congestion. The interstitium is suboptimally evaluated due to the degree of hypoinflation. Interstitial edema appears improved/decreased compared to 09/09/2017. Also, right pleural effusion appears decreased. DICTATED BY: Brennan Andrew MD DATE/TIME DICTATED:09/12/17956 BINDER FIXER:MEND[place]ZA DATE/TIME TRANSCRIBED:09/12/17956 CONFIDENTIAL, DO NOT COPY WITHOUT APPROPRIATE AUTHORIZATION. <Electronically signed in Other Vendor System> SIGNED BY: Brennan Andrew MD 09/12/17 1006 PATIENT: DENIA ROSARIO PRESENT AGE: 66 PATIENT ACCOUNT NO: [id number] : 51 LOCATION: [facility] ORDERING PHYSICIAN: Merrick Cullen MD SERVICE DATE: 09/09/17- EXAM TYPE: CARD - ECHO (COMPLETE) W/CONTRAST DENIA ROSARIO Age: 66 : 1950 Gender: M Exam Date: 09/12/2017 16:29 Exam Location: [place] Ht (in): 70 Wt (lb): 212 BSA: 2.20 BP: 124 / 62 Ordering Physician: Merrick Cullen MD Referring Physician: Emily Marcano MD Technologist: Queenie Stack RDCS Room Number: 171 Indications: CHEST PAIN Rhythm: Sinus Technical Quality: Fair FINDINGS Left Ventricle Normal size left ventricle. Mildly abnormal left ventricular ejection fraction estimated at 40-45%. Right Ventricle Right ventricle not well visualized, grossly normal. Right Atrium Normal right atrial size. Left Atrium Mild to moderate left atrial dilatation. Mitral Valve Mitral valve thickened. Mild mitral annular calcification. Mild mitral regurgitation. Aortic Valve Trileaflet aortic valve. Diffuse thickening (sclerosis) of the aortic valve cusps without reduced excursion. No aortic stenosis. Trace aortic regurgitation. Tricuspid Valve Tricuspid valve not well visualized, grossly normal. Mild tricuspid regurgitation. Pulmonic Valve Pulmonic valve not well visualized, grossly normal. Pericardium No pericardial effusion. Great Vessels Aortic root and proximal ascending aorta not well visualized, grossly normal. CONCLUSIONS 1. Mild to moderate aortic sclerosis is present with minimal aortic insufficiency. 2. MItral leaflet thickening is present with mild anular calcification and mild mitral insufficiency with mild to moderate left atrial enlargement. 3. There is no pericardial fluid present. 4. The left ventricular chamber size is normal with global hypokinesia and an estimated ejection fraction of approximately 45% 5. The right heart structures are grossly normal with mild tricuspid insufficiency present and no significant pulmonary hypertension.. Emily Marcano M.D. (Electronically Signed) Final Date: 13 September 2017 16:26 MEASUREMENTS (Male / Female) Normal Values 2D ECHO LV Diastolic Diameter PLAX 5.1 cm 4.2 - 5.9 / 3.9 - 5.3 cm LV Systolic Diameter PLAX 4.3 cm 2.1 - 4.0 cm LV Fractional Shortening PLAX 15.7 % 25 - 46 % LV Ejection Fraction 2D Teich 32.9 % IVS Diastolic Thickness 1.3 cm LVPW Diastolic Thickness 1.3 cm LV Relative Wall Thickness 0.5 RV Internal Dim ED PLAX 2.7 cm 1.9 - 3.8 cm LVOT Diameter 2.1 cm Aortic Root Diameter 3.2 cm LA Systolic Diameter LX 5.2 cm 3.0 - 4.0 / 2.7 - 3.8 cm LA Volume 61.0 cm 18 - 58 / 22 - 52 cm Ascending Aorta Diameter 3.4 cm DOPPLER AV Peak Velocity 117.0 cm/s AV Peak Gradient 5.5 mmHg AV Mean Velocity 83.5 cm/s AV Mean Gradient 3.0 mmHg AV Velocity Time Integral 23.5 cm LVOT Peak Velocity 106.0 cm/s LVOT Peak Gradient 4.5 mmHg LVOT Mean Velocity 72.7 cm/s LVOT Mean Gradient 2.0 mmHg LVOT Velocity Time Integral 22.3 cm LVOT Stroke Volume 77.2 cm AV Area Cont Eq vti 3.3 cm AV Area Cont Eq pk 3.1 cm MV Peak Velocity 138.0 cm/s MV Peak Gradient 7.6 mmHg MV Mean Velocity 68.3 cm/s MV Mean Gradient 2.0 mmHg Mitral E Point Velocity 130.0 cm/s MV PHT Velocity 144.0 cm/s MV Deceleration [place] 512.0 cm/s MV Pressure Half Time 84.4 ms MV Area PHT 2.6 cm MV Deceleration Time 119.0 ms PV Peak Velocity 96.5 cm/s PV Peak Gradient 3.7 mmHg PV Mean Velocity 69.3 cm/s PV Mean Gradient 2.0 mmHg PV Velocity Time Integral 20.7 cm LV E' Lateral Velocity 15.4 cm/s Mitral E to LV E' Lateral Ratio 8.4 LV E' Septal Velocity 12.5 cm/s Mitral E to LV E' Septal Ratio 10.4 DICTATED BY: Jace Marcano MD DATE/TIME DICTATED:09/13/171625 BINDER FIXER:CAMERON DATE/TIME TRANSCRIBED:09/13/171625 CONFIDENTIAL, DO NOT COPY WITHOUT APPROPRIATE AUTHORIZATION. <Electronically signed in Other Vendor System> SIGNED BY: Jace Marcano MD 09/13/17 7689 Disposition Summary Disposition Principal Diagnosis: SEVERO CHF Additional Diagnosis: hx of renal transplant MARY on CPAP DM Discharge Disposition: other general hospital Discharge Instructions General Discharge Information Code Status: Full Code Patient's Diet: diabetic heart healhty diet Patient's Activity: as tolerated Follow-Up Instructions/Appts: -Your being transferred to another hospital for further management of your increasing creatinine. -Please follow-up with your sales host 7 days after discharge -Please follow-up with your rubber washer 7 days after discharge -Please follow-up with your primary care provider within 7 days after discharge. -We have made changes to your home medications, please read the instructions carefully. -Please come back to the hospital if your symptoms got worse. Medications at Discharge Discharge Medications: Stop taking the following medications: Apixaban (Eliquis) 5 MG TABLET ORAL TWICE DAILY Furosemide (Lasix) 40 MG TABLET ORAL DAILY Continue taking these medications: Rosuvastatin Calcium (Crestor) 5 MG TABLET 1 Tablet ORAL DAILY Comments: Last Taken: 09/12/17 Time: 5 PM RECIEVED LIPITOR IN HOSPITAL Aspirin (Ecotrin*) 81 MG TABLET.DR 1 Tablet ORAL DAILY Comments: Last Taken: 09/13/17 Time: 9 AM Vit C/E/Zn/Coppr/Lutein/Zeaxan (Preservision Areds 2 Softgel) 250-200-40 CAPSULE 1 Capsule ORAL TWICE DAILY Comments: DID NOT RECIEVE IN HOSPITAL [place]-3 Fatty Acids ([place]-3) (Unknown Strength) CAPSULE Unknown Dose ORAL DAILY Comments: Last Taken: 09/13/17 Time: 9 AM Docusate Sodium (Stool Softener) 100 MG TABLET 1 Tablet ORAL DAILY Comments: Last Taken: 09/13/17 Time: 9 AM Magnesium Oxide (Magnesium) 400 MG CAPSULE 1 Capsule ORAL DAILY Comments: Last Taken: 09/13/17 Time: 9 AM Metoprolol Tartrate (Metoprolol Tartrate) 25 MG TABLET 0.5 Tablet ORAL TWICE DAILY Comments: Last Taken: 09/13/17 Time: 9 AM Mycophenolate Mofetil (Cellcept) 250 MG CAPSULE 4 Capsule ORAL TWICE DAILY Comments: Last Taken: 09/13/17 Time: 9 AM Cinacalcet HCl (Sensipar) 60 MG TABLET 1 Tablet ORAL DAILY Comments: Last Taken: 09/12/17 Time: 5 PM Insulin Detemir (Levemir) 100 UNIT/ML VIAL 8 Units Inject into fatty tissue Every night Comments: Last Taken: 09/13/17 Time: 9 AM Sulfamethoxazole/Trimethoprim (Bactrim 400-80 MG Tablet) 400 MG-80 MG TABLET 1 Tablet ORAL TUESDAY, TUESDAY AND TUESDAY Comments: Last Taken: 09/12/17 Time: 8 AM Belatacept (Nulojix) (Unknown Strength) VIAL Unknown Dose INTRAVEN ONCE A MONTH Comments: NOT GIVEN IN HOSPITAL Glipizide (Glipizide) 5 MG TABLET 0.5 Tablet ORAL DAILY Qty = 30 Comments: NOT GIVEN IN HOSPITAL Start taking the following new medications: Apixaban (Eliquis) 2.5 MG TABLET 2.5 Milligram ORAL TWICE DAILY Qty = 60 No Refills Comments: Last Taken: 09/13/17 Time: 1230 PM Copies To: Melba ECKERT,Solo Laird; Jeet ECKERT,Jace Lucas; Jigna Gillespie MD; Maribell ECKERT, Lester Attending MD Review Statement Documenting Attending: Malick Hernandez MD Other Findings: The patient was seen and discussed with house staff, case management, and Nephrology (Dr. Wild). Creatinine bump to 2.8 noted (was 2.0 on admission). Furosemide and Bactrim have been on hold. Dr. Amador of renal transplant service at [facility] is aware and via [facility] will transfer to [facility]. Renal US will be repeated there (all images from here to be sent). Patient and concerned also regarding cardiology and pulmonary follow-up. He has bilateral pleural effusions that were noted and was being diuresed. He was given a trial of albuterol aerosol with some slight subjective improvement in breathing (had perhaps minimal wheeze on forced expiration). PFT's from several years ago showed only mild restrictive lung disease (no obstructive disease). He also has thoracic kyphosis and ?asbestosis that may be contributing to lung issues. Family also wishes cardiology and pulmonary input at [facility]. Dr. Lance Marcano here is his primary Grief Counsellor. Dr. Jigna Gillespie is his PCP at the [facility] (he has not seen her recently) and Dr. Bradley Lewis has seen him as PCP here in this area.
--- NOTE | 2017-09-13 11:03 | PN- Nephrology ---
Assessment/Plan Assessment: 1. SEVERO: worsening - still suspect diuretic induced prerenal; acute rejection less likely based on u/a 2. ESRD: s/p DD transplant w baseline Cr mid 1s 3. SOB: suspect major component chronic lung dx rather than volume overload Suggestion: 1. continue w/o diuretics 2. lowered apixiban 2.5 mg bid Favor transfer to [facility] for additional pulm & renal eval Subjective Subjective: SOB better No cough No CP No uremic sx No pulm consult done Objective Vital Signs and I&Os Vital Signs Date Time Temp Pulse Resp B/P B/P Pulse O2 O2 Flow FiO2 Mean Ox Delivery Rate 09/13 0911 99 130/60 09/13 0645 97.8 91 20 130/60 92 Room Air 09/13 0000 94 BIPAP 09/12 2357 78 98 09/12 2218 98.2 98 18 132/60 89 Room Air 09/12 2133 102 95 09/12 2119 97 132/60 09/12 1048 93 Room Air Intake & Output 09/13 1600 09/13 0400 09/12 1600 09/12 0400 09/11 1600 09/11 0400 Intake Total 200 200 510 395 510 445 Output Total 675 575 800 900 575 Balance -475 200 -65 -405 -390 -130 Intake, IV 10 20 10 20 Intake, Oral 200 200 500 375 500 425 Number 1 0 0 Bowel Movements Output, Urine 675 575 800 900 575 Patient 200 lb 203 lb Weight Weight Bed scale Bed scale Measurement Method Physical Exam General Appearance: well developed/nourished, no apparent distress, alert Head: atraumatic Neck: normal inspection Respiratory: no respiratory distress, quiet respiration, decreased breath sounds Cardiovascular: regular rate/rhythm Abdomen: soft, non-tender, Renal transplant RLQ w/o tenderness Extremities: no edema Neurologic/Psychiatric: no motor/sensory deficits, awake, alert Current Medications: Current Medications Sig/Eron Start time Last Medication Dose Route Stop Time Status Admin Albuterol Sulfate 3 ML Q4H PRN 09/11 1145 AC 09/12 INH 1025 Apixaban 2.5 MG BID 09/13 2200 UNVr PO Apixaban 5 MG BID 09/10 1000 DC 09/12 PO 2119 Aspirin Buffered 81 MG DAILY 09/10 1000 AC 09/13 PO 0911 Atorvastatin Calcium 20 MG 1700 09/10 1700 AC 09/12 PO 1718 Cinacalcet 60 MG 1700 09/10 1700 AC 09/12 PO 1718 Docusate Sodium 100 MG DAILY 09/10 1000 AC 09/13 PO 09 Fish Oil 1,050 MG DAILY 09/10 1000 AC 09/13 PO 09 Furosemide 60 MG 7:30 AM, & 4:30 PM 09/10 0730 DC 09/12 IV 0821 Insulin Detemir 4 UNITS BID 09/10 1000 AC 09/13 SC 0912 Magnesium Oxide 400 MG DAILY 09/10 1000 AC 09/13 PO 09 Metoprolol Tartrate 12.5 MG BID 09/10 1000 AC 09/13 PO 0911 Mycophenolate Mofetil 1,000 MG BID 09/10 1000 AC 09/13 PO 09 Trimethoprim/ 1 TAB 09/12 1000 AC 09/12 Sulfamethoxazole PO 08 Results Pertinent Lab Results: Laboratory Tests 09/13 09/13 0644 0625 Chemistry Sodium (137 - 145 mmol/L) 143 Potassium (3.5 - 5.1 mmol/L) 5.1 Chloride (98 - 107 mmol/L) 104 Carbon Dioxide (22 - 30 mmol/L) 28 Anion Gap (5 - 16) 11 BUN (9 - 20 mg/dL) 62 H Creatinine (0.7 - 1.2 mg/dL) 2.8 H Estimated GFR (>60 ml/min) 23 L BUN/Creatinine Ratio (7 - 25 %) 22.1 Hematology CBC w Diff NO MAN DIFF REQ WBC (4.8 - 10.8 /CUMM) 10.4 RBC (4.70 - 6.10 /CUMM) 4.37 L Hgb (14.0 - 18.0 G/DL) 8.5 L Hct (42 - 52 %) 28.5 L MCV (80.0 - 94.0 FL) 65.1 L MCH (27.0 - 31.0 PG) 19.4 L MCHC (33.0 - 37.0 G/DL) 29.8 L RDW (11.5 - 14.5 %) 18.3 H Plt Count (130 - 400 /CUMM) 296 MPV (7.4 - 10.4 FL) 8.0 Gran % (42.2 - 75.2 %) 82.4 H Lymphocytes % (20.5 - 51.1 %) 4.4 L Monocytes % (1.7 - 9.3 %) 11.1 H Eosinophils % (0 - 5 %) 2.1 Basophils % (0.0 - 2.0 %) 0 Absolute Granulocytes (1.4 - 6.5 /CUMM) 8.6 H Absolute Lymphocytes (1.2 - 3.4 /CUMM) 0.5 L Absolute Monocytes (0.10 - 0.60 /CUMM) 1.2 H Absolute Eosinophils (0.0 - 0.7 /CUMM) 0.2 Absolute Basophils (0.0 - 0.2 /CUMM) 0 09/12 09/11 0800 0600 Chemistry Sodium (137 - 145 mmol/L) 145 142 Potassium (3.5 - 5.1 mmol/L) 4.4 4.9 Chloride (98 - 107 mmol/L) 101 103 Carbon Dioxide (22 - 30 mmol/L) 30 25 Anion Gap (5 - 16) 13 14 BUN (9 - 20 mg/dL) 58 H 53 H Creatinine (0.7 - 1.2 mg/dL) 2.4 H 2.1 H Estimated GFR (>60 ml/min) 27 L 32 L BUN/Creatinine Ratio (7 - 25 %) 24.2 25.2 H Calcium (8.4 - 10.2 mg/dL) 9.9 Phosphorus (2.5 - 4.5 mg/dL) 4.2 Albumin (3.5 - 5.0 g/dL) 3.7 Hematology CBC w Diff NO MAN DIFF REQ NO MAN DIFF REQ WBC (4.8 - 10.8 /CUMM) 10.1 9.4 RBC (4.70 - 6.10 /CUMM) 4.72 4.44 L Hgb (14.0 - 18.0 G/DL) 9.1 L 8.5 L Hct (42 - 52 %) 30.9 L 29.1 L MCV (80.0 - 94.0 FL) 65.6 L 65.5 L MCH (27.0 - 31.0 PG) 19.4 L 19.2 L MCHC (33.0 - 37.0 G/DL) 29.5 L 29.4 L RDW (11.5 - 14.5 %) 18.3 H 17.7 H Plt Count (130 - 400 /CUMM) 322 314 MPV (7.4 - 10.4 FL) 8.1 7.8 Gran % (42.2 - 75.2 %) 76.2 H 78.9 H Lymphocytes % (20.5 - 51.1 %) 7.2 L 6.0 L Monocytes % (1.7 - 9.3 %) 12.7 H 11.5 H Eosinophils % (0 - 5 %) 3.7 3.6 Basophils % (0.0 - 2.0 %) 0.2 0 Absolute Granulocytes (1.4 - 6.5 /CUMM) 7.7 H 7.4 H Absolute Lymphocytes (1.2 - 3.4 /CUMM) 0.7 L 0.6 L Absolute Monocytes (0.10 - 0.60 /CUMM) 1.3 H 1.1 H Absolute Eosinophils (0.0 - 0.7 /CUMM) 0.4 0.3 Absolute Basophils (0.0 - 0.2 /CUMM) 0 0 02/10 1500 Urines Urine Color (YEL,AMB,STR) YEL Urine Clarity (CLEAR) CLEAR Urine pH (5.0 - 8.0) 6.0 Ur Specific [place] (1.001 - 1.035) 1.015 Urine Protein (NEG,<30 MG/DL) NEG Urine Ketones (NEG) NEG Urine Nitrite (NEG) NEG Urine Bilirubin (NEG) NEG Urine Urobilinogen (0.1 - 1.0 EU/dl) 0.2 Ur Leukocyte Esterase (NEG) NEG Ur Microscopic SEDIMENT EXAMINED Urine RBC (0 - 5 /HPF) 1-3 Urine WBC (0 - 2 /HPF) 1-3 H Ur Epithelial Cells (NONE,FEW) RARE Urine Hemoglobin (NEG) TRACE-INTACT H Urine Glucose (N MG/DL) NEG Imaging/Other Studies: Renal US: The transplant kidney in the right lower quadrant measures 13.5 x 8.2 x 7.2 cm in dimension. There is renal cortical thickening and loss of corticomedullary differentiation. No renal stone, mass or hydronephrosis is seen. No fluid collection around the kidney is seen. Doppler evaluation demonstrates increased peak systolic velocities in the renal artery questionable for kink or stenosis. Peak systolic velocity measures 312-313 cm/s. Renal artery peak systolic velocity is normal in the hilum of the kidney measuring 122 cm/s. Resistive indices in the transplant kidney are elevated ranging from 0.7-0.9. The right iliac artery is patent with normal peak systolic velocity of 101 cm/s. The right renal vein is patent. IMPRESSION: No hydronephrosis. Renal cortical thickening and loss of renal corticomedullary differentiation. Elevated peak systolic velocities in the right renal artery questionable for kink or stenosis. Elevated resistive indices in the right kidney.
[2017-09-13] MEDS ORDERED: ELIQUIS2.5 M1 PO (11:12)
--- NOTE | 2017-09-13 14:30 | PN- Cardiology ---
Subjective Subjective: Shortness of breath is somewhat better. Creatinine is unfortunately continuing to increase. No chest pain. No palpitations. No diaphoresis. No nausea or vomiting. Objective Vital Signs and I&Os Vital Signs Date Time Temp Pulse Resp B/P B/P Pulse O2 O2 Flow FiO2 Mean Ox Delivery Rate 09/13 1106 94 Room Air Room Air 09/13 0911 99 130/60 09/13 0645 97.8 91 20 130/60 92 Room Air 09/13 0000 94 BIPAP 09/12 2357 78 98 09/12 2218 98.2 98 18 132/60 89 Room Air 09/12 2133 102 95 09/12 2119 97 132/60 Intake & Output 09/13 1600 09/13 0800 09/13 0000 09/12 1600 09/12 0800 09/12 0000 Intake Total 320 200 200 400 110 395 Output Total 200 675 575 0 800 Balance 120 -475 200 -175 110 -405 Intake, IV 10 20 Intake, Oral 320 200 200 400 100 375 Number 1 Bowel Movements Output, Urine 200 675 575 0 800 Physical Exam: Gen: NAD HEENT: normal Lungs: Bilateral rales, normal resp. effort Heart: RRR, S1, S2, 1/6 systolic murmur Abdomen: Soft, nontender, no masses Extremities: Trace edema Neuro: Alert and oriented x 3, cranial nerves intact Current Medications: Current Medications Sig/Eron Start time Last Medication Dose Route Stop Time Status Admin Albuterol Sulfate 3 ML Q4H PRN 09/11 1145 AC 09/12 INH 1025 Apixaban 2.5 MG BID 09/13 2200 AC 09/13 PO 1224 Apixaban 5 MG BID 09/10 1000 DC 09/12 PO 2119 Aspirin Buffered 81 MG DAILY 09/10 1000 AC 09/13 PO 0911 Atorvastatin Calcium 20 MG 1700 09/10 1700 AC 09/12 PO 1718 Cinacalcet 60 MG 1700 09/10 1700 AC 09/12 PO 1718 Docusate Sodium 100 MG DAILY 09/10 1000 AC 09/13 PO 0911 Fish Oil 1,050 MG DAILY 09/10 1000 AC 09/13 PO 0911 Insulin Detemir 4 UNITS BID 09/10 1000 AC 09/13 SC 0912 Magnesium Oxide 400 MG DAILY 09/10 1000 AC 09/13 PO 0911 Metoprolol Tartrate 12.5 MG BID 09/10 1000 AC 09/13 PO 09 Mycophenolate Mofetil 1,000 MG BID 09/10 1000 AC 09/13 PO 09 Trimethoprim/ 1 TAB 09/12 1000 AC 09/12 Sulfamethoxazole PO 08 Results Last 48 Hrs of Labs/Mics: Laboratory Tests 09/13/17 0644: CBC w Diff NO MAN DIFF REQ, RBC 4.37 L, MCV 65.1 L, MCH 19.4 L, MCHC 29.8 L, RDW 18.3 H, MPV 8.0, Gran % 82.4 H, Lymphocytes % 4.4 L, Monocytes % 11.1 H, Eosinophils % 2.1, Basophils % 0, Absolute Granulocytes 8.6 H, Absolute Lymphocytes 0.5 L, Absolute Monocytes 1.2 H, Absolute Eosinophils 0.2, Absolute Basophils 0 09/13/17 0625: Anion Gap 11, Estimated GFR 23 L, BUN/Creatinine Ratio 22.1 09/12/17 0800: Anion Gap 13, Estimated GFR 27 L, BUN/Creatinine Ratio 24.2, Calcium 9.9, Phosphorus 4.2, Albumin 3.7, CBC w Diff NO MAN DIFF REQ, RBC 4.72, MCV 65.6 L, MCH 19.4 L, MCHC 29.5 L, RDW 18.3 H, MPV 8.1, Gran % 76.2 H, Lymphocytes % 7.2 L, Monocytes % 12.7 H, Eosinophils % 3.7, Basophils % 0.2, Absolute Granulocytes 7.7 H, Absolute Lymphocytes 0.7 L, Absolute Monocytes 1.3 H, Absolute Eosinophils 0.4, Absolute Basophils 0 Assessment/Plan Assessment/Plan Assessment: 1. Hypertension 2. Diabetes mellitus 3. Status post renal transplant 4. 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 Acute HFpEF, improving on diuretic therapy Plan: * Lasix on hold for elevated creatinine * Check basic metabolic profile daily * Chest x-ray pending from this morning * Echocardiogram * The patient is being transferred to [facility] to evaluate for acute kidney injury with history of transplant Continue telemetry? Yes
[2017-09-13 14:55] VITALS: BP 120/60
--- NOTE | 2017-09-13 16:26 | ECHOCARDIOGRAM REPORT ---
DENIA ROSARIO Age: 66 : 1950 Gender: M Exam Date: 09/12/2017 16:29 Exam Location: [place] Ht (in): 70 Wt (lb): 212 BSA: 2.20 BP: 124 / 62 Ordering Physician: Merrick Cullen MD Referring Physician: Emily Marcano MD Technologist: Queenie Stack MEG Room Number: [id number] Indications: CHEST PAIN Rhythm: Sinus Technical Quality: Fair FINDINGS Left Ventricle Normal size left ventricle. Mildly abnormal left ventricular ejection fraction estimated at 40-45%. Right Ventricle Right ventricle not well visualized, grossly normal. Right Atrium Normal right atrial size. Left Atrium Mild to moderate left atrial dilatation. Mitral Valve Mitral valve thickened. Mild mitral annular calcification. Mild mitral regurgitation. Aortic Valve Trileaflet aortic valve. Diffuse thickening (sclerosis) of the aortic valve cusps without reduced excursion. No aortic stenosis. Trace aortic regurgitation. Tricuspid Valve Tricuspid valve not well visualized, grossly normal. Mild tricuspid regurgitation. Pulmonic Valve Pulmonic valve not well visualized, grossly normal. Pericardium No pericardial effusion. Great Vessels Aortic root and proximal ascending aorta not well visualized, grossly normal. CONCLUSIONS 1. Mild to moderate aortic sclerosis is present with minimal aortic insufficiency. 2. MItral leaflet thickening is present with mild anular calcification and mild mitral insufficiency with mild to moderate left atrial enlargement. 3. There is no pericardial fluid present. 4. The left ventricular chamber size is normal with global hypokinesia and an estimated ejection fraction of approximately 45% 5. The right heart structures are grossly normal with mild tricuspid insufficiency present and no significant pulmonary hypertension.. Emily Marcano M.D. (Electronically Signed) Final Date: 13 September 2017 16:26 MEASUREMENTS (Male / Female) Normal Values 2D ECHO LV Diastolic Diameter PLAX 5.1 cm 4.2 - 5.9 / 3.9 - 5.3 cm LV Systolic Diameter PLAX 4.3 cm 2.1 - 4.0 cm LV Fractional Shortening PLAX 15.7 % 25 - 46 % LV Ejection Fraction 2D Teich 32.9 % IVS Diastolic Thickness 1.3 cm LVPW Diastolic Thickness 1.3 cm LV Relative Wall Thickness 0.5 RV Internal Dim ED PLAX 2.7 cm 1.9 - 3.8 cm LVOT Diameter 2.1 cm Aortic Root Diameter 3.2 cm LA Systolic Diameter LX 5.2 cm 3.0 - 4.0 / 2.7 - 3.8 cm LA Volume 61.0 cm 18 - 58 / 22 - 52 cm Ascending Aorta Diameter 3.4 cm DOPPLER AV Peak Velocity 117.0 cm/s AV Peak Gradient 5.5 mmHg AV Mean Velocity 83.5 cm/s AV Mean Gradient 3.0 mmHg AV Velocity Time Integral 23.5 cm LVOT Peak Velocity 106.0 cm/s LVOT Peak Gradient 4.5 mmHg LVOT Mean Velocity 72.7 cm/s LVOT Mean Gradient 2.0 mmHg LVOT Velocity Time Integral 22.3 cm LVOT Stroke Volume 77.2 cm AV Area Cont Eq vti 3.3 cm AV Area Cont Eq pk 3.1 cm MV Peak Velocity 138.0 cm/s MV Peak Gradient 7.6 mmHg MV Mean Velocity 68.3 cm/s MV Mean Gradient 2.0 mmHg Mitral E Point Velocity 130.0 cm/s MV PHT Velocity 144.0 cm/s MV Deceleration [place] 512.0 cm/s MV Pressure Half Time 84.4 ms MV Area PHT 2.6 cm MV Deceleration Time 119.0 ms PV Peak Velocity 96.5 cm/s PV Peak Gradient 3.7 mmHg PV Mean Velocity 69.3 cm/s PV Mean Gradient 2.0 mmHg PV Velocity Time Integral 20.7 cm LV E' Lateral Velocity 15.4 cm/s Mitral E to LV E' Lateral Ratio 8.4 LV E' Septal Velocity 12.5 cm/s Mitral E to LV E' Septal Ratio 10.4
== END 2017-09-13 19:25 | disposition short-term general hospital (02) | DRG 682 ==
LOC: ERH 16:23 → ERHI 22:41 → 1NO 22:41 → ENRESERV 23:20 → 1NO 09-10 00:17 → ENTRNSPT 09-12 11:31 → EDTRNSPT 09-12 11:43 → EDTRNSPTTYP 09-12 11:43 → CMPTRNSPT 09-12 11:46 → ENPENDDIS 09-13 12:02 → 1NO 09-13 19:25
PROVIDERS: Physician Assistant Medical; Radiology Vascular & Interventional Radiology; Student in an Organized Health Care Education/Training Program
DX: N17.9 Acute kidney failure, unspecified (principal); I50.33 Acute on chronic diastolic (congestive) heart failure; I13.2 Hypertensive heart and chronic kidney disease with heart failure and with stage 5 chronic kidney disease, or end stage renal disease; I42.9 Cardiomyopathy, unspecified; Z94.0 Kidney transplant status; J44.9 Chronic obstructive pulmonary disease, unspecified; N18.6 End stage renal disease; I44.0 Atrioventricular block, first degree; R01.1 Cardiac murmur, unspecified; E78.5 Hyperlipidemia, unspecified; G47.33 Obstructive sleep apnea (adult) (pediatric); Z86.711 Personal history of pulmonary embolism; M10.9 Gout, unspecified; Z87.891 Personal history of nicotine dependence
CPT/HCPCS: 1NP; ERO; 36415; 71046; 76775; 81001; 82436; 87086; 87804; 87804-59; 93005; 93010; 96374; 99291; C8929; J1940; J7517; Q9957